=== PATIENT | male | born 1980 | race Caucasian/White ===

== ENCOUNTER 2017-01-13 16:53 | Inpatient (IN) | payer MEDICAID, OTHER ==
[~2017-01-13] VITALS: Ht 177.8 cm; Wt 91.5 kg
[2017-01-13 19:16] LABS: ADD SCAN DIFF NO
[2017-01-13 19:17] LABS: HEMATOCRIT 34.6 % (42.0-52.0); HEMOGLOBIN 12.1 g/dl (14.0-18.0); MEAN CORPUSCULAR HEMOGLOBIN 29.6 pg (29.0-33.0); MEAN CORPUSCULAR VOLUME 84.6 fl (82.0-101.0); MEAN PLATELET VOLUME 9.3 fl (7.4-10.4); PLATELET COUNT 510 10^3/UL (140-415); RED BLOOD COUNT 4.09 10^6/ul (4.70-6.10); RED CELL DISTRIBUTION WIDTH 14.6 % (11.5-14.5); WHITE BLOOD COUNT 9.9 10^3/ul (4.8-10.8)
[2017-01-13 19:20] LABS: HAAIG REFLEX REFLEX FILED
[2017-01-13 19:27] LABS: ADD UMIC YES; URINE BILIRUBIN (Dip) 3+ (NEGATIVE); URINE BLOOD (Dip) 1+ (NEGATIVE); URINE COLOR AMBER (YELLOW); URINE GLUCOSE (Dip) NEGATIVE (NEGATIVE); URINE KETONES (Dip) NEGATIVE (NEGATIVE); URINE LEUKOCYTE ESTERASE (Dip) NEGATIVE (NEGATIVE); URINE NITRITE (Dip) NEGATIVE (NEGATIVE); URINE TOTAL PROTEIN (Dip) 1+ (NEGATIVE); URINE UROBILINOGEN (Dip) 1.0 E.U./dL (0.1-1.0)
[2017-01-13 19:38] LABS: ALBUMIN 3.8 g/dl (3.3-4.9); ALBUMIN/GLOBULIN RATIO 0.65; BILIRUBIN,DIRECT 3.8 mg/dl (0.00-0.20); BILIRUBIN,INDIRECT 1.1 mg/dl (0-1.1); BILIRUBIN,TOTAL 4.9 mg/dl (0.2-1.3); CALCIUM 9.8 mg/dl (8.4-10.2); CREATININE 1.19 mg/dl (0.61-1.24); POTASSIUM 3.9 mmol/L (3.5-5.1); TOTAL PROTEIN 9.6 g/dl (6.1-8.1)
[2017-01-13 19:40] LABS: INR 0.91; PROTIME 12.3 Sec (12.2-14.2)
[2017-01-13 19:41] LABS: PARTIAL THROMBOPLASTIN TIME 27.1 Sec (25.0-35.0)
[2017-01-13 19:51] LABS: BACTERIA,URINE RARE; ICTOTEST POSITIVE (NEGATIVE); SQUAMOUS EPITHELIAL CELL,UR RARE; URINE RBCS 0-2 /HPF (0)
[2017-01-13 19:57] LABS: EOSINOPHILS # 1.2 10^3/ul (0.0-0.5); LYMPHOCYTES # 1.2 10^3/ul (0.8-2.9); MONOCYTE # 0.7 10^3/ul (0.3-0.9); NEUTROPHIL # 6.8 10^3/ul (1.6-7.5)
--- NOTE | 2017-01-13 20:13 | RADRPT ---
PROCEDURE: US Abdomen. CLINICAL INDICATION: abdominal pain , jaundice TECHNIQUE: Multiple real-time images were acquired of the patient's right upper quadrant abdomen a nd retroperitoneum utilizing a high resolution transducer. COMPARISON: None FINDINGS: The liver demonstrates normal echogenicity. The liver is enlarged in size and no focal solid lesion s are seen. The liver measures 20 cm in length. The portal vein is patent with normal direction of f low. There is mild intrahepatic biliary dilatation seen. No gallstones are identified within the gallbladder. There is moderate pericholecystic fluid. Ther e is mild gallbladder wall thickening measuring 3 mm. The common bile duct measures 5 mm in maximal dimension. There are multiple lymph nodes seen in the region of the pancreatic head and epigastric region measu ring up to 2.5 cm. The pancreas is not well seen. No free fluid is identified. The right kidney is normal in size, and demonstrate normal echogenicity and cortical thickness. The right kidney measures 12.4 cm in long dimension. There is no evidence of hydronephrosis. There are no kidney stones. There is a trace amount of right perinephric fluid. RPTAT: AA IMPRESSION: Evidence of lymphadenopathy in the region of the pancreatic head and epigastric region. Mild intrahepatic biliary ductal dilatation. Moderate pericholecystic fluid and mild gallbladder wall thickening. No evidence of gallstones. Trace amount of right perinephric fluid. Neoplasm, such as lymphoma, is suspected. Further evaluation with a CT of the abdomen and pelvis with contrast is recommended. A call report was made and the findings discussed with Valeria Monsalve (Poornima) at 01/13/2017 8:1 0:10 PM. .Manav Zazueta MD, MD Date Time Electronically viewed and signed by .Manav Zazueta MD, MD on 01/13/2017 20:12 .S/
[2017-01-13 20:26] LABS: HEPATITIS B CORE ANTIBODY NEGATIVE (NEGATIVE)
[2017-01-13] MEDS ORDERED: SOD CHLORIDE 0.9% 1,000 ML IV SCH (20:28)
[2017-01-13] MEDS ORDERED: ACETAMINOPHEN 325 MG TAB PO PRN (20:30)
[2017-01-13] MEDS ORDERED: ONDANSETRON 4 MG INJ IV PRN ×2 (20:30→22:00)
--- NOTE | 2017-01-13 20:33 | ERA ---
ER Documentation Chief Complaint Date/Time DATE: 01/13/17 TIME: 20:29 Chief Complaint FATIGUE, GENERALIZE WEAKNESS & NAUSEA X4 DAYS HPI This is a 36-year-old male complains of painless jaundice over the past 4-5 days. The patient's skin is turned gradually yellow with very dark yellow urine but no fever nausea vomiting or diarrhea. Does feel general malaise. The patient is seen his primary care doctor a month ago for some swollen glands under his mandible if not resolved. Saw his doctor again today because of the jaundice and he was sent here for evaluation. He has no abdominal pain no back pain no weight loss or lack of appetite. ROS All systems reviewed and are negative except as per history of present illness. Medications Home Meds No Active Prescriptions or Reported Meds Allergies Allergies: Coded Allergies: No Known Allergy (Unverified , 01/13/17) PMhx/Soc Medical and Surgical Hx: pt denies Medical Hx History of Surgery: Yes (shoulder) Hx Cardiac Disorders: No Hx Psychiatric Problems: No Hx Miscellaneous Medical Probl: No Hx Alcohol Use: No Hx Substance Use: No Hx Tobacco Use: No Smoking Status: Never smoker FmHx Family History: No coronary disease Physical Exam Vitals Vital Signs Date Time Temp Pulse Resp B/P Pulse Ox O2 Delivery O2 Flow Rate FiO2 01/13/17 19:40 99.5 84 18 131/75 97 Room Air 01/13/17 16:57 97.6 106 18 165/81 97 Physical Exam Const: Well-developed, well-nourished Head: Atraumatic, normocephalic Eyes: Normal Conjunctiva, PERRLA, EOMI, normal sclera, no nystagmus ENT: Normal External Ears, Nose and Mouth, moist mucus membranes, there is large submandibular adenopathy and anterior chain adenopathy. Neck: Full range of motion. No meningismus, no lymphadenopathy. Resp: Clear to auscultation bilaterally, no wheezing, rhonchi, rales Cardio: Regular rate and rhythm, no murmurs, S1 S2 present Abd: Soft, non tender x 4, right upper quadrant with mild tenderness with either enlarged liver or nodes , non distended. Normal bowel sounds, no guarding or rebound, no pulsitile abdominal masses or bruits Skin: No petechiae or rashes, no ecchymosis , no maculopapular rash, jaundice Back: No midline or flank tenderness Ext: No cyanosis, or edema, FROM x 4, normal inspection, neurovascularly intact x 4 Neur: Awake and alert, STR 5/5 x 4, sensation intact x 4, no focal findings, cerebellum intact Psych: Normal Mood and Affect Result Diagram: 01/13/17190401/13/171904 Results 24 hrs Laboratory Tests Test 01/13/17 19:05 01/13/17 19:09 White Blood Count 9.910^3/ul Red Blood Count 4.0910^6/ul Hemoglobin 12.1g/dl Hematocrit 34.6% Mean Corpuscular Volume 84.6fl Mean Corpuscular Hemoglobin 29.6pg Mean Corpuscular Hemoglobin Concent 35.0g/dl Red Cell Distribution Width 14.6% Platelet Count 42991^3/UL Mean Platelet Volume 9.3fl Neutrophils % 69.0% Lymphocytes % 12.0% Monocytes % 7.0% Eosinophils % 12.0% Neutrophils # 6.810^3/ul Lymphocytes # 1.210^3/ul Monocytes # 0.710^3/ul Eosinophils # 1.210^3/ul Prothrombin Time 12.3Sec Prothrombin Time Ratio 1.0 INR International Normalized Ratio 0.91 Activated Partial Thromboplast Time 27.1Sec Sodium Level 140mmol/L Potassium Level 3.9mmol/L Chloride Level 103mmol/L Carbon Dioxide Level 29mmol/L Anion Gap 12 Blood Urea Nitrogen 20mg/dl Creatinine 1.19mg/dl Glucose Level 110mg/dl Calcium Level 9.8mg/dl Total Bilirubin 4.9mg/dl Direct Bilirubin 3.80mg/dl Indirect Bilirubin 1.1mg/dl Aspartate Amino Transf (AST/SGOT) 65IU/L Alanine Aminotransferase (ALT/SGPT) 134IU/L Alkaline Phosphatase 774IU/L Total Protein 9.6g/dl Albumin 3.8g/dl Globulin 5.80g/dl Albumin/Globulin Ratio 0.65 Lipase 25U/L Hepatitis B Surface Antigen NEGATIVE Hepatitis B Core Total Antibody NEGATIVE Hepatitis C Antibody NEGATIVE Urine Color CHETAN Urine Clarity CLEAR Urine pH 6.0 Urine Specific [place] 1.025 Urine Ketones NEGATIVE Urine Nitrite NEGATIVE Urine Bilirubin 3+ Urine Ictotest POSITIVE Urine Urobilinogen 1.0 E.U./dL Urine Leukocyte Esterase NEGATIVE Urine Microscopic RBC 0-2/HPF Urine Microscopic WBC 0-2/HPF Urine Squamous Epithelial Cells RARE Urine Bacteria RARE Urine Hemoglobin 1+ Urine Glucose NEGATIVE% Urine Total Protein 1+ Procedures/MDM PROCEDURE: US Abdomen. CLINICAL INDICATION: abdominal pain , jaundice TECHNIQUE: Multiple real-time images were acquired of the patient's right upper quadrant abdomen and retroperitoneum utilizing a high resolution transducer. COMPARISON: None FINDINGS: The liver demonstrates normal echogenicity. The liver is enlarged in size and no focal solid lesions are seen. The liver measures 20 cm in length. The portal vein is patent with normal direction of flow. There is mild intrahepatic biliary dilatation seen. No gallstones are identified within the gallbladder. There is moderate pericholecystic fluid. There is mild gallbladder wall thickening measuring 3 mm. The common bile duct measures 5 mm in maximal dimension. There are multiple lymph nodes seen in the region of the pancreatic head and epigastric region measuring up to 2.5 cm. The pancreas is not well seen. No free fluid is identified. The right kidney is normal in size, and demonstrate normal echogenicity and cortical thickness. The right kidney measures 12.4 cm in long dimension. There is no evidence of hydronephrosis. There are no kidney stones. There is a trace amount of right perinephric fluid. RPTAT: AA IMPRESSION: Evidence of lymphadenopathy in the region of the pancreatic head and epigastric region. Mild intrahepatic biliary ductal dilatation. Moderate pericholecystic fluid and mild gallbladder wall thickening. No evidence of gallstones. Trace amount of right perinephric fluid. Neoplasm, such as lymphoma, is suspected. Further evaluation with a CT of the abdomen and pelvis with contrast is recommended. A call report was made and the findings discussed with Valeria Monsalve (Poornima) at 01/13/2017 8:10:10 PM. .Manav Zazueta MD, MD Date Time Electronically viewed and signed by .Manav Zazueta MD, MD on 01/13/2017 20: 12 .S/ CC: VALERIA MILLS DO We will admit patient for painless jaundice with suspected lymphoma will need CT abdomen with contrast for better evaluation and to look at the pancreatic head. 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
[2017-01-13 21:02] VITALS: TEMP 99.2
--- NOTE | 2017-01-13 21:05 | RADRPT ---
PROCEDURE: Chest x-ray CLINICAL INDICATION: Chest pain TECHNIQUE: Chest single view COMPARISON: None FINDINGS: The heart is normal in size. The pulmonary vessels are normal in caliber. The lungs are clear. Th e costophrenic angles are sharp. The visualized bony thorax is unremarkable. IMPRESSION: No acute cardiopulmonary disease. RPTAT: HH .Jose Cochran MD, MD Date Time Electronically viewed and signed by .Jose Cochran MD, on 01/13/2017 21:05 .W/
[2017-01-13 21:26] VITALS: Ht 177.8 cm; Wt 91.5 kg
[2017-01-13 21:50] VITALS: BP 126/75; RESP 20
[2017-01-13] MEDS ORDERED: morphine 10 MG INJ IM PRN (22:00)
[2017-01-14] VITALS (14 sets, daily range): BP systolic 103–126; BP diastolic 63–79; PULSE 88–98; RESP 16–20
[2017-01-14] MEDS ORDERED: ZOLPIDEM 5 MG TAB PO PRN (05:00)
[2017-01-14] MEDS: hydrOXYzine HCL 25 MG TAB NGT PRN (05:37)
--- NOTE | 2017-01-14 05:43 | HP ---
DATE OF ADMISSION: 01/13/2017 CHIEF COMPLAINT: "Jaundice." HISTORY OF PRESENT ILLNESS: The patient is a 36-year-old male with no significant past medical hist ory who presented to the emergency department with the above stated chief complaint. He stated that about 2 months ago he started noticing enlarged lymph nodes under his mandibles for which he went t o urgent care clinic, and he stated he was treated with antibiotic as well as anti-inflammatory. He stated that did not shrink the lymph nodes which are painless. Over the past 10 days or so, he sta rted having generalized itching and also started noticing his urine turning dark. Yesterday he went to see his primary care doctor who told him that his eyes were turning yellow and instructed him to go to the ER for evaluation. He stated that he has lost between 20 to 25 pounds intentionally over the past 2 months. He denied any fever, chills, nausea, vomiting, abdominal pain, chest pain, or s hortness of breath. Over the past 10 days or so, however, he has been having difficulty falling asl eep for which he started taking sleeping pill as well as smoking marijuana to help him sleep. When he presented to the ER, his blood pressure was 165/81, heart rate 106, respiratory rate 18, tem perature 97.6, oxygen saturation 97% on room air. Laboratory value shows a WBC 9.9, hemoglobin 12.1 , platelet count 510. Total bilirubin almost 5, direct bilirubin almost 4, AST 65, ALT 134, alkalin e phosphatase almost 800. Lipase is 25, and the rest of his CMP is within normal limits. A right u pper quadrant ultrasound was done which showed evidence of lymphadenopathy in the region of the panc reatic head and epigastric region with mild intrahepatic biliary ductal dilatation as well as modera te pericholecystic fluid and mild gallbladder wall thickening with no evidence of gallstones. Accor ding to radiology, neoplasm such as lymphoma is suspected. Chest x-ray shows clear lungs REVIEW OF SYSTEMS: A 12-point review was performed and negative except as mentioned in HPI. PAST MEDICAL HISTORY: Denies. PAST SURGICAL HISTORY: Right shoulder surgery from trauma. SOCIAL HISTORY: Denied a history of tobacco, drinks alcohol occasionally. He recently started smok ing marijuana to help him with sleep ALLERGIES: NO KNOWN DRUG ALLERGIES. HOME MEDICATIONS: He has been taking an unknown sleeping pill over the past 10 days. Otherwise, do es not take any medications chronically. PHYSICAL EXAMINATION: VITAL SIGNS: Blood pressure 126/75, heart rate 99, respiratory rate 20, temperature 98.2, oxygen sa turation 98% on room air. GENERAL: The patient is lying in bed. Initially he was sleepy, but he was arousable and answering questions appropriately. He actually looks comfortable. HEENT: No obvious head deformity. There is mild sclerotic icterus. Pupils are reactive to light. Extraocular muscles intact. CARDIOVASCULAR: Slightly tachycardic with regular rhythm. NECK: He has easily palpable lymph nodes just under his mandibles on both sides which are nontender . LUNGS: Clear to auscultation. No wheezes or rhonchi. ABDOMEN: Soft, nontender. No grimaces noted on palpation. There are positive bowel sounds. No gu arding, no rigidity. EXTREMITIES: No edema. SKIN: He has tattoos. Otherwise, no skin rashes. LABORATORY DATA: Pertinent positive results as mentioned in the HPI. IMAGING: Right upper quadrant ultrasound and chest x-ray results as mentioned in the HPI. IMPRESSION: 1. Painless jaundice, likely secondary to malignancy such as lipoma. 2. Abnormal liver enzymes, secondary to above. 3. Normocytic anemia. PLAN: We will obtain additional abdominal imaging to further evaluate the abnormal right upper quad rant ultrasound results. We will place an oncology and GI consult. He will be provided anti-itchin g medication. We will obtain a biopsy of one of his mandibular lymph nodes. We will check lactate dehydrogenase, uric acid, and also will send a ferritin and iron panel. Further workup and management per clinical course. Dictated By: BECCA DAVENPORT/ERIC Conf#: [id number] DID#: [id number]
[2017-01-14 06:09] LABS: ADD SCAN DIFF NO
[2017-01-14 06:26] LABS: BASOPHIL # 0.1 10^3/ul (0.0-0.1); BASOPHILS % 0.8 % (0.0-2.0); EOSINOPHILS # 1.8 10^3/ul (0.0-0.5); EOSINOPHILS % 16.1 % (0.0-7.0); HEMATOCRIT 31.6 % (42.0-52.0); HEMOGLOBIN 10.9 g/dl (14.0-18.0); LYMPHOCYTES # 1.6 10^3/ul (0.8-2.9); LYMPHOCYTES % 14.5 % (15.0-51.0); MEAN CORPUSCULAR HEMOGLOBIN 29.1 pg (29.0-33.0); MEAN CORPUSCULAR HGB CONC 34.5 g/dl (32.0-37.0); MEAN CORPUSCULAR VOLUME 84.3 fl (82.0-101.0); MEAN PLATELET VOLUME 9.1 fl (7.4-10.4); MONOCYTE # 0.6 10^3/ul (0.3-0.9); MONOCYTES % 5.9 % (0.0-11.0); NEUTROPHIL # 6.8 10^3/ul (1.6-7.5); NEUTROPHILS % 61.9 % (39.0-77.0); PLATELET COUNT 436 10^3/UL (140-415); RED BLOOD COUNT 3.75 10^6/ul (4.70-6.10); RED CELL DISTRIBUTION WIDTH 14.4 % (11.5-14.5)
[2017-01-14 06:44] LABS: ALBUMIN 3.4 g/dl (3.3-4.9); POTASSIUM 4.1 mmol/L (3.5-5.1)
[2017-01-14 06:46] LABS: BILIRUBIN,DIRECT 3.5 mg/dl (0.00-0.20); BILIRUBIN,INDIRECT 1.2 mg/dl (0-1.1); BILIRUBIN,TOTAL 4.7 mg/dl (0.2-1.3); CREATININE 1.14 mg/dl (0.61-1.24)
[2017-01-14 06:47] LABS: ALBUMIN/GLOBULIN RATIO 0.66; PHOSPHORUS 5.1 mg/dl (2.5-4.9); TOTAL PROTEIN 8.5 g/dl (6.1-8.1)
[2017-01-14 06:48] LABS: CALCIUM 9.2 mg/dl (8.4-10.2); MAGNESIUM 2.1 mg/dl (1.7-2.5)
[2017-01-14] MEDS ORDERED: CEFAZOLIN 1 GM INJ ONE (07:00)
[2017-01-14] MEDS ORDERED: HEPARIN 5,000 UNIT/0.5 ML VIAL SC SCH (09:00)
[2017-01-14] MEDS: DEXTROSE 5%-0.45% NACL 1,000 ML IV SCH ×2 (09:35→19:00)
[2017-01-14] MEDS ORDERED: DIPHENHYDRAMINE 50 MG INJ IV ONE (10:00)
--- NOTE | 2017-01-14 10:12 | PN ---
Date/Time of Note Date/Time of Note DATE: 01/14/17 TIME: 10:08 Assessment/Plan VTE Prophylaxis VTE Prophylaxis Intervention: ambulation Lines/Catheters [facility]ine [facility] Urinary Cath still in place: No Assessment/Plan Chief Complaint/Hosp Course Assessment and plan 1. Painless jaundice with associated pruritus. Patient did have abdominal ultrasound with evidence of lymphadenopathy in the region of the pancreatic head and epigastric region. There is also seen mild intrahepatic biliary duct dilation. There was seen moderate pericholecystic fluid and mild gallbladder wall thickening with no evidence of gallstones. Imaging suspect for neoplasm such as lymphoma. MRI of the abdomen with contrast is pending. Fax Machine Repairer was consulted. Oncology was consulted as well. Await input. Continue with antihistamine as needed for pruritus 2. Transaminitis likely secondary to #1. Monitor LFT. Fax Machine Repairer to follow. 3. Leukocytosis. Likely reactive. Monitor for S&S of fever 4. Normocytic normochromic anemia. Monitor level. 5. Hyperbilirubinemia secondary to #1. Still with reports of dark colored urine. Disposition and plan: Follow-up on further imaging of abdomen. Oncologist and product development worker to follow. Follow-up with input Discussed plan of care with Dr. Thompson Problems: Subjective 24 Hr Interval Summary Free Text/Dictation Reports having generalized pruritus. Denies any pain at this time per Exam/Review of Systems Vital Signs Vitals Vital Signs Date Time Temp Pulse Resp B/P Pulse Ox O2 Delivery O2 Flow Rate FiO2 01/14/17 08:08 97.8 86 18 126/72 99 01/13/17 21:02 Room Air Intake and Output 01/13/17 01/13/17 01/14/17 15:00 23:00 07:00 Intake Total 800 ml Output Total 700 ml Balance 100 ml Exam Constitutional: alert, oriented Psych: nl mood/affect Head: normocephalic Eyes: other (Minimally icteric) Neck: supple, No jvd Respiratory: clear to auscultation, normal air movement Cardiovascular: regular rate and rhythm Gastrointestinal: non-tender, soft Musculoskeletal: nl extremities to inspection Extremities: normal pulses Neurological: COKEMAN II-XII intact, nl mental status, nl speech Results Result Diagram: 01/14/17 0550 01/14/17 0550 Results 24 hrs Laboratory Tests Test 01/13/17 19:05 01/13/17 19:09 01/14/17 05:50 White Blood Count 9.9 10.9 H Red Blood Count 4.09 L 3.75 L Hemoglobin 12.1 L 10.9 L Hematocrit 34.6 L 31.6 L Mean Corpuscular Volume 84.6 84.3 Mean Corpuscular Hemoglobin 29.6 29.1 Mean Corpuscular Hemoglobin Concent 35.0 34.5 Red Cell Distribution Width 14.6 H 14.4 Platelet Count 510 H 436 H Mean Platelet Volume 9.3 9.1 Neutrophils % 69.0 61.9 Lymphocytes % 12.0 L 14.5 L Monocytes % 7.0 5.9 Eosinophils % 12.0 H 16.1 H Neutrophils # 6.8 6.8 Lymphocytes # 1.2 1.6 Monocytes # 0.7 0.6 Eosinophils # 1.2 H 1.8 H Prothrombin Time 12.3 Prothrombin Time Ratio 1.0 INR International Normalized Ratio 0.91 Activated Partial Thromboplast Time 27.1 Sodium Level 140 141 Potassium Level 3.9 4.1 Chloride Level 103 103 Carbon Dioxide Level 29 26 Anion Gap 12 16 Blood Urea Nitrogen 20 21 H Creatinine 1.19 1.14 Glucose Level 110 110 Calcium Level 9.8 9.2 Total Bilirubin 4.9 H 4.7 H Direct Bilirubin 3.80 H 3.50 H Indirect Bilirubin 1.1 1.2 H Aspartate Amino Transf (AST/SGOT) 65 H 55 H Alanine Aminotransferase (ALT/SGPT) 134 H 110 H Alkaline Phosphatase 774 H 604 H Total Protein 9.6 H 8.5 H Albumin 3.8 3.4 Globulin 5.80 H 5.10 H Albumin/Globulin Ratio 0.65 0.66 Lipase 25 Hepatitis B Surface Antigen NEGATIVE Hepatitis B Core Total Antibody NEGATIVE Hepatitis C Antibody NEGATIVE Urine Color CHETAN Urine Clarity CLEAR Urine pH 6.0 Urine Specific [place] 1.025 Urine Ketones NEGATIVE Urine Nitrite NEGATIVE Urine Bilirubin 3+ H Urine Ictotest POSITIVE Urine Urobilinogen 1.0 E.U./dL Urine Leukocyte Esterase NEGATIVE Urine Microscopic RBC 0-2 Urine Microscopic WBC 0-2 Urine Squamous Epithelial Cells RARE Urine Bacteria RARE Urine Hemoglobin 1+ H Urine Glucose NEGATIVE Urine Total Protein 1+ H Basophils % 0.8 Nucleated Red Blood Cells % 0.0 Basophils # 0.1 Nucleated Red Blood Cells # 0.0 Phosphorus Level 5.1 H Magnesium Level 2.1 Medications Medications Current Medications Morphine Sulfate (morphine) 3 mg Q4H PRN IM PAIN; Start 01/13/17 at 22:00 Ondansetron HCl 4 mg 4 mg Q6H PRN IV NAUSEA AND/OR VOMITING; Start 01/13/17 at 22:00 Dextrose/Sodium Chloride (D5-1/2ns) 1,000 ml @ 100 mls/hr Q10H IV Last administered on 01/14/17 09:35; Admin Dose 100 MLS/HR; Start 01/14/17 at 09:00 Hydroxyzine HCl (Atarax) 25 mg Q6H PRN NGT ITCHING Last administered on 05:37; Admin Dose 25 MG; Start 01/14/17 at 05:00 Zolpidem Tartrate (Ambien) 10 mg HS PRN PO INSOMNIA; Start 01/14/17 at 05:00 Indomethacin (Indocin Supp) 100 mg ONCE ONCE [place] ; Start 01/14/17 at 10:30; Stop 01/14/17 at 10:31 Diphenhydramine HCl (Benadryl) 50 mg ONCE ONCE IV ; Start 01/14/17 at 10:00; Stop 01/14/17 at 10:01; Status PATRICIA BOYD Jan 14, 2017 10:12
[2017-01-14] MEDS ORDERED: INDOMETHACIN 50 MG SUPP PR ONE (10:30)
--- NOTE | 2017-01-14 16:09 | RADRPT ---
PROCEDURE: MR Abdomen with and without contrast CLINICAL INDICATION: Jaundice. TECHNIQUE: Protocol: Routine MRI of the abdomen performed with and without contrast Contrast: 20 cc of intravenous Magnevist. COMPARISON: None. FINDINGS: Liver is enlarged measuring 21 cm. No focal liver lesion. Gallbladder demonstrates mild mural thickening and hyperenhancement. There is diffuse intrahepatic bile duct dilatation. There is also mural thickening and hyperenhance ment of the extrahepatic biliary system. The pancreatic body and tail is thickened with increased restricted diffusion. There are multiple l ymph nodes identified in the peripancreatic and portocaval region. There is also an enlarged gastro hepatic lymph node measuring up to 3.0 cm. There are also numerous subcentimeter retroperitoneal lymph nodes. Spleen is enlarged measuring 14 cm in AP dimension. Kidneys demonstrate diffuse low T2 signal nodules occupying the bilateral renal cortices Visualized bowel is normal in caliber without mural thickening. No free fluid or fluid collection. Marrow signal is unremarkable. IMPRESSION: Subtle infiltration of the pancreatic body, concerning for a lymphomatous involvement of the pancrea s. There is associated peripancreatic, retroperitoneal, and gastrohepatic lymphadenopathy. Numerous hyporvascular lesions occupying the bilateral kidneys, radiographically consistent with rona al lymphoma. Diffuse mild intrahepatic bile duct dilatation. There is also marrow thickening and hyperenhancemen t of the extrahepatic biliary system, which is a nonspecific finding and is seen in cases of cholang itis. However, the possibility of lymphomatous involvement of the biliary system is raised, albeit rare, given the findings in the pancreas and kidneys. Hepatosplenomegaly. RPTAT: EE .Rodrick Lerma MD, MD Date Time Electronically viewed and signed by .Rodrick Lerma MD, MD on 01/14/2017 16:13 .C/
[2017-01-14] MEDS ORDERED: IOHEXOL 300MG/ML 30 ML BTL ONE (16:59)
[2017-01-14] MEDS ORDERED: SUCCINYLCHOLINE CHLORIDE 100 MG/5 ML SYG IV ONE (17:24)
[2017-01-14] MEDS ORDERED: PROPOFOL 20 ML ONE (17:24)
[2017-01-14] MEDS ORDERED: MIDAZOLAM 1 MG/ML 2 ML INJ ONE (17:25)
[2017-01-14] MEDS ORDERED: FENTAnyl 50 MCG/ML VIAL ONE ×2 (17:25→17:49)
[2017-01-14] MEDS ORDERED: PHENYLephrine (100 MCG/ML) 5ML SYG ONE (17:48)
--- NOTE | 2017-01-14 18:28 | CONS ---
Date/Time of Note Date/Time of Note DATE: 01/14/17 TIME: 18:04 Assessment/Plan Assessment/Plan Additional Assessment/Plan Assessment * Jaundice * Likely extrahepatic vs hepatic etiology MRCP 01/14/2017 Subtle infiltration of the pancreatic body, concerning for a lymphomatous involvement of the pancreas. There is associated peripancreatic, retroperitoneal, and gastrohepatic lymphadenopathy.Numerous hyporvascular lesions occupying the bilateral kidneys, radiographically consistent with renal lymphoma Diffuse mild intrahepatic bile duct dilatation. There is also marrow thickening and hyperenhancement of the extrahepatic biliary system, which is a nonspecific finding and is seen in cases of cholangitis. However, the possibility of lymphomatous involvement of the biliary system is raised, albeit rare, given the findings in the pancreas and kidneys. Plan * ERCP risks and benefit explained to patient patient agreed with plan procedure * continue present management * Monitor liver profile . Consultation Date/Type/Reason Admit Date/Time Jan 13, 2017 at 20:28 Date of Consultation: Jan 14, 2017 Reason for Consultation jaundice Referring Provider: BECCA QUEVEDO MD Hx of Present Illness 36 year old male who presented with chief complaint of jaundice.No significant past medical history.Present condition apparently started 2 months prior to consultation as submandibular lymph nodes described as painless ,no fever nor chills .He consulted a physician and was given antibiotics which provided no relief.No consultation until 2 weeks prior to consultation jaundice was noted with associated dark colored urine but no change in color of stool.No fever nor abdominal pain until 1 week prior to consult ,progressive jaundice with itchiness were noted hence consulted private Md who advised to go to emergency room. Emergency room course revealed the following. Ultrasound of gallbladder 01/13/2017 Evidence of lymphadenopathy in the region of the pancreatic head and epigastric region.Mild intrahepatic biliary ductal dilatation. Moderate pericholecystic fluid and mild gallbladder wall thickening. No evidence of gallstones.Trace amount of right perinephric fluid.Neoplasm, such as lymphoma, is suspected. Laboratory revealed normal wbc but elevated liver enzymes.Total bilirubin 4.9, AST 65,ALT 134,Alkaline phosphatase 774. Subsequent examination on the floor revealed painless jaundice associated itchiness.Denies any fever . MRCP revealed Subtle infiltration of the pancreatic body, concerning for a lymphomatous involvement of the pancreas. There is associated peripancreatic, retroperitoneal, and gastrohepatic lymphadenopathy.Numerous hyporvascular lesions occupying the bilateral kidneys, radiographically consistent with renal lymphoma.Diffuse mild intrahepatic bile duct dilatation. There is also marrow thickening and hyperenhancement of the extrahepatic biliary system, which is a nonspecific finding and is seen in cases of cholangitis. However, the possibility of lymphomatous involvement of the biliary system is raised, albeit rare, given the findings in the pancreas and kidneys.Hepatosplenomegaly. Constitutional: improved, no complaints Eyes: no complaints ENT: no complaints Respiratory: no complaints Cardiovascular: no complaints Gastrointestinal: no complaints Genitourinary: no complaints Musculoskeletal: no complaints Skin: no complaints, other (jaundice) Neurologic: no complaints Endocrine: no complaints Lymphatic: adenopathy, no complaints Psychological: nl mood/affect Immunologic: no complaints Past Medical History Medical History: no pertinent history Past Surgical History Past Surgical Hx: no surgical history Family History Significant Family History: no pertinent family hx Social History Alcohol Use: occasionally Smoking Status: Never smoker Drug Use: none Exam/Review of Systems Vital Signs Vitals Vital Signs Date Time Temp Pulse Resp B/P Pulse Ox O2 Delivery O2 Flow Rate FiO2 01/14/17 08:08 97.8 86 18 126/72 99 01/13/17 21:02 Room Air Intake and Output 01/13/17 01/13/17 01/14/17 15:00 23:00 07:00 Intake Total 800 ml Output Total 700 ml Balance 100 ml Exam Constitutional: alert, oriented, well developed Head: atraumatic, normocephalic Eyes: EOMI, PERRL, icteric, nl conjunctiva, nl lids ENMT: nl external ears & nose, nl lips & teeth, nl nasal mucosa & septum Neck: non-tender, other (lymph nodes), supple Respiratory: clear to auscultation, normal air movement Cardiovascular: nl pulses, regular rate and rhythm Gastrointestinal: bowel sounds, nl liver, spleen, non-tender, soft Genitourinary - Male: nl penis, nl scrotum Musculoskeletal: nl extremities to inspection, nl gait and stance Extremities: normal pulses Neurological: [employer] II-XII intact, nl mental status, nl speech, nl strength Skin: nl turgor, other (jaundice), No rash or lesions Lymph: enlarged (submandibular,inguinal lymph nodes) Results Result Diagram: 01/14/17 0550 01/14/17 0550 Results 24 hrs Laboratory Tests Test 01/13/17 19:05 01/13/17 19:09 01/14/17 05:50 White Blood Count 9.9 10.9 H Red Blood Count 4.09 L 3.75 L Hemoglobin 12.1 L 10.9 L Hematocrit 34.6 L 31.6 L Mean Corpuscular Volume 84.6 84.3 Mean Corpuscular Hemoglobin 29.6 29.1 Mean Corpuscular Hemoglobin Concent 35.0 34.5 Red Cell Distribution Width 14.6 H 14.4 Platelet Count 510 H 436 H Mean Platelet Volume 9.3 9.1 Neutrophils % 69.0 61.9 Lymphocytes % 12.0 L 14.5 L Monocytes % 7.0 5.9 Eosinophils % 12.0 H 16.1 H Neutrophils # 6.8 6.8 Lymphocytes # 1.2 1.6 Monocytes # 0.7 0.6 Eosinophils # 1.2 H 1.8 H Prothrombin Time 12.3 Prothrombin Time Ratio 1.0 INR International Normalized Ratio 0.91 Activated Partial Thromboplast Time 27.1 Sodium Level 140 141 Potassium Level 3.9 4.1 Chloride Level 103 103 Carbon Dioxide Level 29 26 Anion Gap 12 16 Blood Urea Nitrogen 20 21 H Creatinine 1.19 1.14 Glucose Level 110 110 Calcium Level 9.8 9.2 Total Bilirubin 4.9 H 4.7 H Direct Bilirubin 3.80 H 3.50 H Indirect Bilirubin 1.1 1.2 H Aspartate Amino Transf (AST/SGOT) 65 H 55 H Alanine Aminotransferase (ALT/SGPT) 134 H 110 H Alkaline Phosphatase 774 H 604 H Total Protein 9.6 H 8.5 H Albumin 3.8 3.4 Globulin 5.80 H 5.10 H Albumin/Globulin Ratio 0.65 0.66 Lipase 25 Hepatitis B Surface Antigen NEGATIVE Hepatitis B Core Total Antibody NEGATIVE Hepatitis C Antibody NEGATIVE Urine Color CHETAN Urine Clarity CLEAR Urine pH 6.0 Urine Specific [place] 1.025 Urine Ketones NEGATIVE Urine Nitrite NEGATIVE Urine Bilirubin 3+ H Urine Ictotest POSITIVE Urine Urobilinogen 1.0 E.U./dL Urine Leukocyte Esterase NEGATIVE Urine Microscopic RBC 0-2 Urine Microscopic WBC 0-2 Urine Squamous Epithelial Cells RARE Urine Bacteria RARE Urine Hemoglobin 1+ H Urine Glucose NEGATIVE Urine Total Protein 1+ H Basophils % 0.8 Nucleated Red Blood Cells % 0.0 Basophils # 0.1 Nucleated Red Blood Cells # 0.0 Phosphorus Level 5.1 H Magnesium Level 2.1 Medications Medications Current Medications Morphine Sulfate (morphine) 3 mg Q4H PRN IM PAIN; Start 01/13/17 at 22:00 Ondansetron HCl 4 mg 4 mg Q6H PRN IV NAUSEA AND/OR VOMITING; Start 01/13/17 at 22:00 Dextrose/Sodium Chloride (D5-1/2ns) 1,000 ml @ 100 mls/hr Q10H IV Last administered on 01/14/17 09:35; Admin Dose 100 MLS/HR; Start 01/14/17 at 09:00 Hydroxyzine HCl (Atarax) 25 mg Q6H PRN NGT ITCHING Last administered on 05:37; Admin Dose 25 MG; Start 01/14/17 at 05:00 Zolpidem Tartrate (Ambien) 10 mg HS PRN PO INSOMNIA; Start 01/14/17 at 05:00 NARESH COON MD Jan 14, 2017 18:16
[2017-01-14] MEDS ORDERED: ONDANSETRON 4 MG INJ IV PRN (19:00)
[2017-01-14] MEDS ORDERED: METOCLOPRAMIDE 10 MG INJ IV PRN (19:00)
[2017-01-14] MEDS ORDERED: EPHEDrine SULFATE 50 MG/5 ML SYG IV PRN (19:00)
--- NOTE | 2017-01-14 23:08 | CONS ---
DATE OF ADMISSION: 01/13/2017 DATE OF CONSULTATION: 01/14/2017 TYPE OF CONSULTATION: Hematology/oncology. REQUESTING PHYSICIAN: Dr. Timbo Quevedo REASON FOR CONSULTATION: Lymphadenopathy and icterus. Dear Dr. Quevedo: Thank you very much for asking me to see this very interesting and pleasant patient in oncologic research psychiatric centertation. HISTORY OF PRESENT ILLNESS: As you know, Mr. Mahoney is a 36-year-old male who was in good health un til approximately 2 months ago. At that time, the patient was noted to have some lymphadenopathy in the submandibular area. He states that he was seen at urgent care center and given antibiotics and also an "anti-inflammatory." This was of no benefit. The patient states that also during this past 2 months he has had occasional night sweats, although these are not described as being drenching. He does also state that he has noted some decrease in a ppetite. He states food does not taste good and, as a result, feels he has lost [address] month. The patient has not had abdominal pain. He has had some episodes of nausea and vomiting. There has been no change in bowel habits. The patient has not described any left upper quadrant fullness or early satiety. The patient has noticed in the past 2 weeks to have generalized pruritus. This is not necessarily i nduced by hot bath or shower. He also has noted over the past week that urine has been dark. He johnson s not noted any light colored stools. The patient was seen today by his mother's primary care physician who did note that the patient was jaundiced and told him to go the emergency room for evaluation. The patient was seen in the emergency room. White count was 99,900 with 69% neutrophils, 12% lympho cytes, and also 12% eosinophils, red blood cell count was 4.09 million, hemoglobin 12.1, hematocrit 34.6, MCV 84.6, MCH 29.6, MCHC 35, RDW 14.6, and platelet count of 510,000. On admission, the patie nt's sodium was 140, potassium 3.9, creatinine 1.19, BUN 20, calcium 9.8, albumin 3.8 with globulin of 5.80, total bilirubin 4.9 with a direct of 3.8, AST 65, ALT 134, alkaline phosphatase 774, and li pase was 25. A protime was 12.3 seconds, INR 0.91, and PTT 27.1 seconds. Urinalysis does not show any red blood cells or white blood cells. There is 1+ protein and 3+ bilirubin. Hepatitis surface antigen core antibody and hepatitis C antibodies are all negative. An ultrasound of the gallbladder was done, which showed lymphadenopathy in the region of the pancrea tic head and epigastric region. There was mild intrahepatic biliary ductal dilatation. A chest x-r ay did not reveal any pulmonary parenchymal abnormalities and there was no mention of any lymphadeno kendell. MRI of the abdomen was done. This showed a possible infiltration of the pancreatic body wit h associated peripancreatic, retroperitoneal, and gastrohepatic lymphadenopathy. There were numerou s "hypovascular lesions" within the kidneys. This was felt to be consistent with lymphoma. There w as also mild intrahepatic ductal dilatation and mural thickening and enhancement of the extrahepatic biliary system. The spleen is slightly enlarged at 14 cm. The liver was enlarged at 21 cm. There were no focal hepatic lesions seen. There were numerous subcentimeter retroperitoneal lymph nodes seen. The patient has undergone an ERCP today. Unfortunately, there are no reports available to determine if there was a biliary stent placed. PAST MEDICAL HISTORY: Unremarkable. He has had no medical problems in the past. No hypertension, heart disease, diabetes, renal or hepatic disease. The patient has had fall in an elevator shaft, w hich resulted in right shoulder injury, which required surgical repair. The patient also had back i njury. SOCIAL HISTORY: The patient is unmarried. He does not smoke, drinks alcohol minimally. The patien t has not knowingly been exposed to industrial toxins or ionizing radiation. He has worked as an el [employer], but is presently disabled because of back injury. HOME MEDICATIONS: The patient's only medications at home have been some type of sleeping pill. ALLERGIES: HE HAS NO KNOWN ALLERGIES. FAMILY HISTORY: The patient's family history is unremarkable. There is no history of any malignanc y or hematologic abnormalities. PHYSICAL EXAMINATION: GENERAL: Reveals a well-developed, well-nourished male in no acute distress. VITAL SIGNS: Temperature 98.3, pulse 84 per minute and regular, respirations 20, blood pressure 124 /79, pulse oximetry 95% on room air. SKIN: No ecchymosis, no petechiae, no rashes. There are multiple tattoos present. HEENT: Normocephalic. No evidence of trauma. Pupils equal, round, react to light and accommodatio n. There is 2+ scleral icterus. Oral mucosa is moist without lesions. Tongue is well papillated. No gingival hyperplasia. No hypertrophy of Waldeyer ring. No mucosal telangiectasias. There are bilateral enlarged submandibular nodes or salivary glands. They are firm to the touch and nontender . NECK: Supple. No jugular venous distention or thyroid enlargement. No carotid bruits. CHEST: Clear to auscultation and percussion. No rhonchi, wheezes, rales, or rubs. There is no hasmukh n on percussion of the spine, sternum, clavicles, or ribs. HEART: Regular sinus rhythm. No S3, S4. No murmurs. No rubs. BREASTS: No gynecomastia. ABDOMEN: Flat and soft. There is no organomegaly. No masses or tenderness, although there is some fullness in the left upper quadrant. There is no hernias, no ascites. EXTREMITIES: Good range of motion. No clubbing, edema, or cyanosis. No palpable cords or Homans s ign. NEUROLOGIC: Normal. DISCUSSION: This patient does have jaundice, which appears to be due to biliary obstruction caused by local peripancreatic, biliary, and enlarged lymph nodes. There is evidence of possible infiltrat ion of the pancreas by a process as well as similar findings in the kidneys. Given the patient's age, such a process suggests the possibility of a lymphoproliferative disorder. The finding of increased eosinophils suggests the possibility of a Hodgkin lymphoma. Although less likely infections by some type of fungal organism cannot be ruled out. As noted, the patient may have had ERCP with possible biopsy today. Unfortunately, the amount of ti ssue obtainable through such a biopsy is not reliable for diagnosis of a proliferative disorder. At this time, would suggest that the patient have a CT scan of the chest. This will be done without contrast given the marginal creatinine. Perhaps this will demonstrate lymphadenopathy and/or media stinal mass, which would be consistent with Hodgkin lymphoma. Other studies to suggest at this time would include an LDH and uric acid. We will also obtain a ser um protein electrophoresis, immunofixation, and quantitative immunoglobulins. Also, a beta 2 microg lobulin, and a sedimentation rate. Once again, thank you very much for the opportunity of participating in the medical care of this yakov y interesting and pleasant patient. I will be happy to follow this patient with you and assist in h is hematologic and oncologic evaluation and followup as necessary. Dictated By: ROSEMARY SANTIZO MD SR/NTS Conf#: [id number] DID#: [id number] CC: TIMBO QUEVEDO MD; PATRICIA ARIAS NP;*EndCC*
[2017-01-15] MEDS: DEXTROSE 5%-0.45% NACL 1,000 ML IV SCH ×2 (04:09→15:00)
[2017-01-15 07:14] LABS: WHITE BLOOD COUNT 10.9 10^3/ul (4.8-10.8)
[2017-01-15 07:34] LABS: URIC ACID 6.1 mg/dl (3.1-7.9)
[2017-01-15 07:58] LABS: CARCINOEMBRYONIC ANTIGEN 0.7 ng/ml (0.0-5.0)
[2017-01-15 08:02] LABS: CANCER ANTIGEN 19-9 27.8 U/ml (0.0-37.0)
[2017-01-15 08:06] VITALS: BP 117/64; RESP 18
--- NOTE | 2017-01-15 09:01 | RADRPT ---
PROCEDURE: ERCP. I CLINICAL INDICATION: Choledocholithiasis. TECHNIQUE: A total of 5 images are performed demonstrating an endoscope in place. . COMPARISON: Abdominal sonogram 01/13/2017. FINDINGS: The common bile duct and cystic duct are of normal caliber. No definite filling defect is identifie d. Biliary stent was placed across the distal common bile duct. A small amount contrast is noted di stal to the stent in the duodenum. Fluoro time: 123.5 seconds mGy: 31.32 IMPRESSION: 1. Status post placement of a biliary stent across the distal common bile duct to the area of the d uodenum. RPTAT:AAJJ Physician Lenny Date Time Electronically viewed and signed by Physician Lenny on 01/15/2017 09:01 SUDHEER/
--- NOTE | 2017-01-15 09:12 | PN ---
Date/Time of Note Date/Time of Note DATE: 01/15/17 TIME: 09:03 Assessment/Plan VTE Prophylaxis VTE Prophylaxis Intervention: ambulation Lines/Catheters IV [facility] Peripheral IV Urinary Cath still in place: No Assessment/Plan Assessment/Plan Awaiting the results of the procedure yesterday. CT of chest to be done. SPEP is pending. He is comfortable presently as the evaluation continues. If material from yesterday is not diagnostic, then biopsy of another site may be needed. Note that LDH is normal, but SPEP is pending. Subjective 24 Hr Interval Summary Free Text/Dictation Pt is alert and comfortable now. Exam/Review of Systems Vital Signs Vitals Vital Signs Date Time Temp Pulse Resp B/P Pulse Ox O2 Delivery O2 Flow Rate FiO2 01/15/17 08:06 98.3 64 18 117/64 98 01/14/17 19:30 Room Air 01/14/17 18:36 8.0 Intake and Output 01/14/17 01/14/17 01/15/17 15:00 23:00 07:00 Intake Total 466 ml 200 ml 694 ml Output Total 1000 ml Balance 466 ml 200 ml -306 ml Exam Constitutional: alert, oriented Head: normocephalic Neck: supple Respiratory: clear to auscultation Cardiovascular: regular rate and rhythm Gastrointestinal: non-tender, soft Results Result Diagram: 01/14/17 0550 01/14/17 0550 Results 24 hrs Laboratory Tests Test 01/15/17 06:35 Uric Acid 6.1 Lactate Dehydrogenase 484 Carcinoembryonic Antigen 0.7 CA 19-9 Antigen 27.8 Immunoglobulin A 160 Immunoglobulin G 2166 H Immunoglobulin M 28 L Medications Medications Current Medications Morphine Sulfate (morphine) 3 mg Q4H PRN IM PAIN; Start 01/13/17 at 22:00 Ondansetron HCl 4 mg 4 mg Q6H PRN IV NAUSEA AND/OR VOMITING; Start 01/13/17 at 22:00 Dextrose/Sodium Chloride (D5-1/2ns) 1,000 ml @ 100 mls/hr Q10H IV Last administered on 01/15/17 04:09; Admin Dose 100 MLS/HR; Start 01/14/17 at 09:00 Hydroxyzine HCl (Atarax) 25 mg Q6H PRN NGT ITCHING Last administered on 05:37; Admin Dose 25 MG; Start 01/14/17 at 05:00 Zolpidem Tartrate (Ambien) 10 mg HS PRN PO INSOMNIA; Start 01/14/17 at 05:00 RIMA ALCOCER MD Jan 15, 2017 09:12
--- NOTE | 2017-01-15 09:42 | CONS ---
DATE OF ADMISSION: 01/13/2017 DATE OF CONSULTATION: 01/15/2017 HEMATOLOGY PROGRESS NOTE PAST MEDICAL HISTORY: The patient's peripheral smear has been reviewed. There is increased Rouleau x of red blood cells. There is a mild leukocytosis. Granulocytes appear normal. There are no arleen ture granulocytes, no hypersegmented polys, and no nucleated red blood cells. There are definite at ypical lymphocytes with convoluted nuclei, and also nucleoli. The appearance of these lymphocytes are most consistent with a non-Hodgkin's lymphoma rather than Ho dgkins disease. Will request a flow cytometry of the peripheral blood. Dictated By: ROSEMARY SANTIZO MD SR/NTS Conf#: [id number] DID#: [id number]
[2017-01-15] MEDS ORDERED: DIPHENHYDRAMINE 50 MG INJ ONE (11:00)
--- NOTE | 2017-01-15 11:53 | RADRPT ---
PROCEDURE: CT Chest without contrast. CLINICAL INDICATION: Lymphadenopathy and jaundice. TECHNIQUE: Multiple contiguous helical CT images of the chest were obtained without the administra tion of intravenous contrast. Coronal and sagittal reformatted images were obtained from the source images. CTDIvol (mGy): 11.27; Total Exam DLP (mGy-cm): 485.61. One or more of the following dose reduction techniques were utilized: - Automated exposure control. - Adjustment of the mA and/or kV according to patient size. - Use of iterative reconstruction technique. COMPARISON: MRI abdomen 01/14/2017. FINDINGS: Limited imaging of the lower neck is unremarkable. The heart is not enlarged. There is no pericardial effusion. There is no bulky lymphadenopathy of the mediastinum, mg or axilla. However, numerous small and scattered few prominent lymph nodes ar e present. For example, on image [id number], there is a 10 mm prevascular lymph node. Similarly prominent lymph nodes are seen within the bilateral axilla. The thoracic aorta is normal in caliber. The pul monary arteries are not enlarged. There is no pulmonary consolidation, pleural effusion or pulmonary nodule. Mild diffuse bronchial wa ll thickening is observed. Scattered reticular opacification is seen throughout the lung bases and may be partially due to atelectasis. Limited imaging of the upper abdomen demonstrates numerous prominent and enlarged lymph nodes throug hout the upper abdomen. There is a 2.0 cm lymph node adjacent to the gastric fundus. The kidneys ap pear symmetrically enlarged and nodular in contour. Vicarious excretion of contrast is observed with in the gallbladder lumen. An internal biliary stent is partially visualized. Skeletal structures are unremarkable. Chest wall soft tissues are unremarkable. IMPRESSION: Lymphadenopathy within the chest and upper abdomen. Mild diffuse bronchial wall thickening with scattered reticular opacification throughout the lung ba ses which may be partially due to atelectasis. No evidence of pulmonary consolidation or pulmonary nodule. RPTAT: HLST .Amanda Oswald MD, Date Time Electronically viewed and signed by .Amanda Oswald MD, MD on 01/15/2017 11:53 .T/
--- NOTE | 2017-01-15 14:15 | PN ---
Date/Time of Note Date/Time of Note DATE: 01/15/17 TIME: 14:04 Assessment/Plan VTE Prophylaxis VTE Prophylaxis Intervention: ambulation, SCD's Lines/Catheters IV Catheter Type (from Nrs): Peripheral IV Urinary Cath still in place: No Assessment/Plan Chief Complaint/Hosp Course . Problems: Assessment/Plan Assessment * Jaundice * Extrahepatic * Lymphadenopathy * consider Lymphoma,non Hodgkin(?) * ERCP /ERS/Stent placement 01/14/2017 Plan * continue present management * Monitor liver profile Subjective 24 Hr Interval Summary Free Text/Dictation * Course reviewed with RN * Patient seen and examined * 01/14/2017 ERCP/ERS /Stent placement * smooth narrowing distal CBD * paucity of intrahepatics * Less itchiness noted * denies abdominal pain,afebrile Exam/Review of Systems Vital Signs Vitals Vital Signs Date Time Temp Pulse Resp B/P Pulse Ox O2 Delivery O2 Flow Rate FiO2 01/15/17 08:06 98.3 64 18 117/64 98 01/14/17 19:30 Room Air 01/14/17 18:36 8.0 Intake and Output 01/14/17 01/14/17 01/15/17 15:00 23:00 07:00 Intake Total 466 ml 200 ml 694 ml Output Total 1000 ml Balance 466 ml 200 ml -306 ml Exam Constitutional: alert, oriented Psych: nl mood/affect Head: normocephalic Eyes: nl conjunctiva Neck: non-tender, supple Respiratory: clear to auscultation, normal air movement Cardiovascular: nl pulses, regular rate and rhythm Gastrointestinal: bowel sounds, non-tender, soft Musculoskeletal: nl extremities to inspection, nl gait and stance Extremities: normal pulses Skin: other (jaundice) Results Result Diagram: 01/14/17 0550 01/14/17 0550 Results 24 hrs Laboratory Tests Test 01/15/17 06:35 Erythrocyte Sedimentation Rate 140 H Uric Acid 6.1 Lactate Dehydrogenase 484 Carcinoembryonic Antigen 0.7 CA 19-9 Antigen 27.8 Immunoglobulin A 160 Immunoglobulin G 2166 H Immunoglobulin M 28 L Medications Medications Current Medications Morphine Sulfate (morphine) 3 mg Q4H PRN IM PAIN; Start 01/13/17 at 22:00 Ondansetron HCl 4 mg 4 mg Q6H PRN IV NAUSEA AND/OR VOMITING; Start 01/13/17 at 22:00 Dextrose/Sodium Chloride (D5-1/2ns) 1,000 ml @ 100 mls/hr Q10H IV Last administered on 01/15/17 04:09; Admin Dose 100 MLS/HR; Start 01/14/17 at 09:00 Hydroxyzine HCl (Atarax) 25 mg Q6H PRN NGT ITCHING Last administered on 05:37; Admin Dose 25 MG; Start 01/14/17 at 05:00 Zolpidem Tartrate (Ambien) 10 mg HS PRN PO INSOMNIA; Start 01/14/17 at 05:00 Diphenhydramine HCl (Benadryl) 25 mg Q6H PRN IM pruritis; Start 01/15/17 at 14: 00 NARESH COON MD Jan 15, 2017 14:14
[2017-01-15 14:49] LABS: ALBUMIN 3.2 g/dl (3.3-4.9); POTASSIUM 3.8 mmol/L (3.5-5.1)
[2017-01-15 14:51] LABS: BILIRUBIN,DIRECT 4.3 mg/dl (0.00-0.20); BILIRUBIN,INDIRECT 1.3 mg/dl (0-1.1); BILIRUBIN,TOTAL 5.6 mg/dl (0.2-1.3); CREATININE 1.09 mg/dl (0.61-1.24)
[2017-01-15 14:52] LABS: ALBUMIN/GLOBULIN RATIO 0.6; CALCIUM 9.2 mg/dl (8.4-10.2); TOTAL PROTEIN 8.5 g/dl (6.1-8.1)
--- NOTE | 2017-01-15 16:03 | PN ---
Date/Time of Note Date/Time of Note DATE: 01/15/17 TIME: 15:59 Assessment/Plan VTE Prophylaxis VTE Prophylaxis Intervention: SCD's Lines/Catheters IV [facility]from [facility] Peripheral IV Urinary Cath still in place: No Assessment/Plan Chief Complaint/Hosp Course Assessment and plan 1. Painless jaundice with associated pruritus. Patient did have abdominal ultrasound with evidence of lymphadenopathy in the region of the pancreatic head and epigastric region. There is also seen mild intrahepatic biliary duct dilation. There was seen moderate pericholecystic fluid and mild gallbladder wall thickening with no evidence of gallstones. Imaging suspect for neoplasm such as lymphoma. MRI of the abdomen with contrast is pending. Side Gluer was consulted. Oncology was consulted as well. s/p ERCP with stent. Continue with GI recs 2. Transaminitis likely secondary to #1. Monitor LFT. Side Gluer to follow. 3. Leukocytosis. Likely reactive. Monitor for S&S of fever 4. Normocytic normochromic anemia. Monitor level. 5. Hyperbilirubinemia secondary to #1. Monitor level. 6.Peripheral smear with suspect Hodgkin's versus non-Hodgkin's lymphoma. Follow up on final biopsy. Continue with oncologist recommendations.. Radiographic scans discussed with patient Disposition and plan: Follow-up with pathology area and follow-up with oncologist recommendations. Continue in-house monitoring for now. Antihistamines for pruritus Discussed plan of care with Dr. Thompson Problems: Subjective 24 Hr Interval Summary Free Text/Dictation Denies any pain at this time. no s/s of distress Exam/Review of Systems Vital Signs Vitals Vital Signs Date Time Temp Pulse Resp B/P Pulse Ox O2 Delivery O2 Flow Rate FiO2 01/15/17 08:06 98.3 64 18 117/64 98 01/14/17 19:30 Room Air 01/14/17 18:36 8.0 Intake and Output 01/14/17 01/14/17 01/15/17 15:00 23:00 07:00 Intake Total 466 ml 200 ml 694 ml Output Total 1000 ml Balance 466 ml 200 ml -306 ml Exam Constitutional: alert, oriented Psych: nl mood/affect Head: normocephalic Eyes: icteric (less) Neck: non-tender Respiratory: clear to auscultation, normal air movement Cardiovascular: regular rate and rhythm Gastrointestinal: non-tender, soft Extremities: normal pulses Neurological: PNEUMATIC SYSTEMS OPERATOR II-XII intact, nl mental status, nl speech Results Result Diagram: 01/14/17 0550 01/15/17 1420 Results 24 hrs Laboratory Tests Test 01/15/17 06:35 01/15/17 14:20 Erythrocyte Sedimentation Rate 140 H Uric Acid 6.1 Lactate Dehydrogenase 484 Carcinoembryonic Antigen 0.7 CA 19-9 Antigen 27.8 Immunoglobulin A 160 Immunoglobulin G 2166 H Immunoglobulin M 28 L Sodium Level 141 Potassium Level 3.8 Chloride Level 102 Carbon Dioxide Level 28 Anion Gap 15 Blood Urea Nitrogen 15 Creatinine 1.09 Glucose Level 102 Calcium Level 9.2 Total Bilirubin 5.6 H Direct Bilirubin 4.30 H Indirect Bilirubin 1.3 H Aspartate Amino Transf (AST/SGOT) 48 H Alanine Aminotransferase (ALT/SGPT) 79 H Alkaline Phosphatase 557 H Total Protein 8.5 H Albumin 3.2 L Globulin 5.30 H Albumin/Globulin Ratio 0.60 Medications Medications Current Medications Morphine Sulfate (morphine) 3 mg Q4H PRN IM PAIN; Start 01/13/17 at 22:00 Ondansetron HCl 4 mg 4 mg Q6H PRN IV NAUSEA AND/OR VOMITING; Start 01/13/17 at 22:00 Dextrose/Sodium Chloride (D5-1/2ns) 1,000 ml @ 100 mls/hr Q10H IV Last administered on 01/15/17 04:09; Admin Dose 100 MLS/HR; Start 01/14/17 at 09:00 Hydroxyzine HCl (Atarax) 25 mg Q6H PRN NGT ITCHING Last administered on 05:37; Admin Dose 25 MG; Start 01/14/17 at 05:00 Zolpidem Tartrate (Ambien) 10 mg HS PRN PO INSOMNIA; Start 01/14/17 at 05:00 Diphenhydramine HCl (Benadryl) 25 mg Q6H PRN IM pruritis; Start 01/15/17 at 14: 00 PATRICIA ARIAS Jan 15, 2017 16:03
[2017-01-15 19:13] VITALS: BP 126/76; RESP 20
[2017-01-15] MEDS: ACETAMINOPHEN 500 MG TAB PO PRN (23:38)
[2017-01-16] MEDS: DIPHENHYDRAMINE 50 MG INJ IM PRN ×2 (02:17→11:46)
--- NOTE | 2017-01-16 04:07 | GILP ---
DATE OF PROCEDURE: PROCEDURE: Endoscopic retrograde cholangiopancreatography with endoscopic retrograde sphincterotomy and endoscopic biliary stent placement. PREMEDICATION: General anesthesia by anesthesiologist. SURGEON: Naresh James MD. INSTRUMENT USED: Side viewing panendoscope. TECHNIQUE: After informed consent, with the patient/relatives understanding the procedure, its indic ations, potential risks and complications, including but not limited to: allergic reaction, bleeding , perforation or infection, and after all pertinent questions were answered to the patients satisfac tion, the patient/relatives signed witnessed informed consent. Following this, premedication was administered slowly IV push under careful cardiovascular and respi ratory monitoring with pulse oximetry, automatic blood pressure and monitoring analyst. Once the sedative effect was achieved the patient was place in the prone position in the radiology s pecial procedures suite; the side viewing panendoscope was introduced and advanced under visual cont rol. Careful examination of the upper gastrointestinal tract, both on insertion as well as withdrawal of the instrument disclosed the following findings: ESOPHAGUS: The mucosa of the entire esophagus appears within normal limits. There is no evidence of esophagitis, varices, neoplasm or stricture. No Hiatal Hernia identified. STOMACH: Upon entrance to the stomach air was insufflated, the gastric polanco distended normally. Th e mucosa of the fundus, body and antrum of the stomach was carefully examined both head-on and on re troflexion, and shows no abnormalities. There is no evidence of gastritis, ulcers or neoplasm. PYLORUS: The pylorus appears patent and within normal limits, with no evidence of gastric outlet ob struction. DUODENUM: The duodenal mucosa was carefully examined in the duodenal bulb as well as the second por tion of the duodenum and appears unremarkable with no evidence of duodenitis, ulcer or neoplasm. AMPULLA OF VATER: The ampulla was identified and appears unremarkable. CANNULATION: Somewhat difficult, and we utilized guidewire which was placed in the pancreatic duct. We then proceeded to utilize needle knife sphincterotome to gain access into the common bile duct which was successful without evidence of complication. A cholangiogram was then obtained. CHOLANGIOGRAM: Showed smooth narrowing of the distal common bile duct. No intraductal pathology is noted. There is also paucity of the intrahepatic ducts that may represent infiltrative process in the liver. A [place]er-10 7 cm stent was placed without difficulty with excellent drainage. IMPRESSION: 1. Small narrowing of the distal common bile duct suggesting extrinsic compression. 2. Paucity of intrahepatic raising questions of liver infiltrative process. 3. Post-precut sphincterotomy post-placement of [place]er-10 7 cm stent. PLAN: The patient will be closely monitored, and further recommendation will depend on his clinical course. ____ management pending. The patient was clearly informed of the need to remove or replac e stent within 3 months. Dictated By: NARESH JAMES MS/ERIC Conf#: [id number] DID#: [id number]
[2017-01-16 04:26] LABS: PROTEIN, TOTAL 6.6 g/dL (6.1-8.1)
[2017-01-16 05:57] LABS: ADD SCAN DIFF NO
[2017-01-16 06:02] LABS: HEMOGLOBIN 10.6 g/dl (14.0-18.0); MEAN CORPUSCULAR HEMOGLOBIN 28.6 pg (29.0-33.0); MEAN CORPUSCULAR HGB CONC 34.2 g/dl (32.0-37.0); MEAN CORPUSCULAR VOLUME 83.6 fl (82.0-101.0); PLATELET COUNT 458 10^3/UL (140-415); RED BLOOD COUNT 3.71 10^6/ul (4.70-6.10); RED CELL DISTRIBUTION WIDTH 14.6 % (11.5-14.5); WHITE BLOOD COUNT 9.6 10^3/ul (4.8-10.8)
[2017-01-16 06:11] LABS: ALBUMIN 3.2 g/dl (3.3-4.9)
[2017-01-16 06:12] LABS: CALCIUM 8.9 mg/dl (8.4-10.2); CREATININE 1.03 mg/dl (0.61-1.24); POTASSIUM 4.4 mmol/L (3.5-5.1)
[2017-01-16 06:13] LABS: BILIRUBIN,DIRECT 4.3 mg/dl (0.00-0.20); BILIRUBIN,INDIRECT 1.4 mg/dl (0-1.1); BILIRUBIN,TOTAL 5.7 mg/dl (0.2-1.3); TOTAL PROTEIN 8.3 g/dl (6.1-8.1)
[2017-01-16 07:52] VITALS: BP 118/74; RESP 18
--- NOTE | 2017-01-16 08:38 | CONS ---
Date/Time of Note Date/Time of Note DATE: 01/16/17 TIME: 08:34 Assessment/Plan Assessment/Plan Additional Assessment/Plan Assessment * Jaundice * Likely extrahepatic vs hepatic etiology MRCP 01/14/2017 Subtle infiltration of the pancreatic body, concerning for a lymphomatous involvement of the pancreas. There is associated peripancreatic, retroperitoneal, and gastrohepatic lymphadenopathy.Numerous hyporvascular lesions occupying the bilateral kidneys, radiographically consistent with renal lymphoma Diffuse mild intrahepatic bile duct dilatation. There is also marrow thickening and hyperenhancement of the extrahepatic biliary system, which is a nonspecific finding and is seen in cases of cholangitis. However, the possibility of lymphomatous involvement of the biliary system is raised, albeit rare, given the findings in the pancreas and kidneys. * s/p ERCP * 1. Small narrowing of the distal common bile duct suggesting extrinsic compression. * 2. Paucity of intrahepatic raising questions of liver infiltrative process * 3. Post-precut sphincterotomy post-placement of Yi-10 7 cm stent. Plan * Remove stent in 3 months * continue present management * Monitor liver profile * Further recommendations pending clinical * Patient seen in collaboration with Dr. James Consultation Date/Type/Reason Admit Date/Time Jan 13, 2017 at 20:28 Initial Consult Date 01/14/17 Type of Consultation: Gastroenterology Referring Provider: BECCA QUEVEDO MD 24 HR Interval Summary Free Text/Dictation Tolerating diet Hemoglobin trending downward with stable LFTs trending upward Exam/Review of Systems Vital Signs Vitals Vital Signs Date Time Temp Pulse Resp B/P Pulse Ox O2 Delivery O2 Flow Rate FiO2 01/16/17 07:52 97.4 85 18 118/74 98 01/14/17 19:30 Room Air 01/14/17 18:36 8.0 Intake and Output 01/15/17 01/15/17 01/16/17 15:00 23:00 07:00 Intake Total 600 ml 1240 ml 1200 ml Output Total 1600 ml 2000 ml Balance 600 ml -360 ml -800 ml Exam Constitutional: alert, oriented, well developed Head: atraumatic, normocephalic Eyes: EOMI, PERRL, icteric, nl conjunctiva, nl lids ENMT: nl external ears & nose, nl lips & teeth, nl nasal mucosa & septum Neck: non-tender, other (lymph nodes), supple Respiratory: clear to auscultation, normal air movement Cardiovascular: nl pulses, regular rate and rhythm Gastrointestinal: bowel sounds, nl liver, spleen, non-tender, soft Musculoskeletal: nl extremities to inspection, nl gait and stance Extremities: normal pulses Neurological: TELEPHONE CLERKS SUPERVISOR II-XII intact, nl mental status, nl speech, nl strength Skin: nl turgor, other (jaundice), No rash or lesions Lymph: enlarged (submandibular,inguinal lymph nodes) Results Result Diagram: 01/16/17 0500 01/16/17 0500 Results 24 hrs Laboratory Tests Test 01/15/17 14:20 01/16/17 05:00 Sodium Level 141 136 Potassium Level 3.8 4.4 Chloride Level 102 102 Carbon Dioxide Level 28 27 Anion Gap 15 11 Blood Urea Nitrogen 15 13 Creatinine 1.09 1.03 Glucose Level 102 100 Calcium Level 9.2 8.9 Total Bilirubin 5.6 H 5.7 H Direct Bilirubin 4.30 H 4.30 H Indirect Bilirubin 1.3 H 1.4 H Aspartate Amino Transf (AST/SGOT) 48 H 53 H Alanine Aminotransferase (ALT/SGPT) 79 H 83 H Alkaline Phosphatase 557 H 546 H Total Protein 8.5 H 8.3 H Albumin 3.2 L 3.2 L Globulin 5.30 H Albumin/Globulin Ratio 0.60 White Blood Count 9.6 Red Blood Count 3.71 L Hemoglobin 10.6 L Hematocrit 31.0 L Mean Corpuscular Volume 83.6 Mean Corpuscular Hemoglobin 28.6 L Mean Corpuscular Hemoglobin Concent 34.2 Red Cell Distribution Width 14.6 H Platelet Count 458 H Mean Platelet Volume 9.0 Medications Medications Current Medications Morphine Sulfate (morphine) 3 mg Q4H PRN IM PAIN; Start 01/13/17 at 22:00 Ondansetron HCl (Zofran Inj) 4 mg Q6H PRN IV NAUSEA AND/OR VOMITING; Start at 22:00 Hydroxyzine HCl (Atarax) 25 mg Q6H PRN NGT ITCHING Last administered on t 05:37; Admin Dose 25 MG; Start 01/14/17 at 05:00 Zolpidem Tartrate (Ambien) 10 mg HS PRN PO INSOMNIA; Start 01/14/17 at 05:00 Diphenhydramine HCl (Benadryl) 25 mg Q6H PRN IM pruritis Last administered on 02:17; Admin Dose 25 MG; Start 01/15/17 at 14:00 Acetaminophen (Tylenol Tab) 500 mg Q6H PRN PO PAIN AND OR ELEVATED TEMP Last administered on 01/15/17 23:38; Admin Dose 500 MG; Start 01/16/17 at 00:00 BELKIS BILL Jan 16, 2017 08:38
--- NOTE | 2017-01-16 10:03 | PN ---
DATE: 01/16/2017 TYPE OF CONSULTATION: Hematology/Oncology SUBJECTIVE: The patient states that for 24 hours, he thought his urine had cleared and that his pru ritus had lessened. Now, he states, however, the pruritus has returned and he feels his urine is da rker. The patient has no complaints of fevers or night sweats at this time. OBJECTIVE: VITAL SIGNS: Temperature 97.4, pulse 85 per minute and regular, respirations 18, blood pressure 118 /74, pulse oximetry 98% on room air. SKIN: No ecchymosis or petechiae. There are some areas of excoriation due to scratching. There ar e tattoos present. HEENT: No mucosal lesions. There is 1 to 2+ scleral icterus. No mucosal lesions. NECK: Supple, no jugular venous distention or thyroid enlargement. CHEST: Clear to auscultation and percussion. No rhonchi, wheezes, rales or rubs. NODES: No palpable lymphadenopathy in any lymph node bearing area. ABDOMEN: Soft, no masses, no ascites. EXTREMITIES: No clubbing, edema or cyanosis. No palpable cords or Homans sign. NEUROLOGIC: Normal. LABORATORY DATA: White count today is 9600, hemoglobin 10.6, hematocrit 31 and platelet count 458,0 00. Bilirubin total is 5.7, direct 4.3, alkaline phosphatase 546. The LDH is 484 and uric acid 6.1 . Sedimentation rate was 140. Quantitative immunoglobulins reveal an elevated IgG of 2166. IgM is decreased at 48. Immunofixatio n is pending. Flow cytometry has been sent on peripheral blood and is pending. ASSESSMENT: 1. Obstructive jaundice. 2. Lymphadenopathy with circulating abnormal lymphocytes, probable lymphoma. PLAN: I have discussed the situation with the radiologist. There is no node which is acceptable to biopsy. Also, the MRI does not suggest marrow infiltration. The kidneys are abnormal and suggest infiltration by possible lymphomatous process. We will attempt a renal biopsy. We will also request an HIV antibody screen. Dictated By: ROSEMARY SANTIZO MD, SR/NTS Conf#: [id number] DID#: [id number]
[2017-01-16 10:40] LABS: IRON 67 ug/dl (35-150)
[2017-01-16 10:49] LABS: TOTAL IRON BINDING CAPACITY 333 ug/dl (241-421)
[2017-01-16 12:15] LABS: BASOPHIL # 0.3 10^3/ul (0.0-0.1); EOSINOPHILS # 1.8 10^3/ul (0.0-0.5); LYMPHOCYTES # 1.3 10^3/ul (0.8-2.9); MONOCYTE # 0.4 10^3/ul (0.3-0.9); MYELOCYTES # 0.1
--- NOTE | 2017-01-16 15:19 | PN ---
Date/Time of Note Date/Time of Note DATE: 01/16/17 TIME: 15:17 Assessment/Plan VTE Prophylaxis VTE Prophylaxis Intervention: SCD's Lines/Catheters IV [facility] Type (from [facility] Saline Lock Urinary Cath still in place: No Assessment/Plan Chief Complaint/Hosp Course Assessment and plan 1. jaundice with associated pruritus. Patient did have abdominal ultrasound with evidence of lymphadenopathy in the region of the pancreatic head and epigastric region. There is also seen mild intrahepatic biliary duct dilation. There was seen moderate pericholecystic fluid and mild gallbladder wall thickening with no evidence of gallstones. Imaging suspect for neoplasm such as lymphoma. MRI of the abdomen with contrast is pending. Senior Software Quality Engineer was consulted. Oncology was consulted as well. s/p ERCP with stent. Continue with aircraft fueler recommendations. 2. Transaminitis likely secondary to #1. Monitor LFT. 3. Leukocytosis. Likely reactive. Monitor for S&S of fever 4. Normocytic normochromic anemia. Monitor level. 5. Hyperbilirubinemia secondary to #1. Monitor level. 6.Peripheral smear with suspect Hodgkin's versus non-Hodgkin's lymphoma. Follow up on final biopsy. Continue with oncologist recommendations.. Tentative plan for renal biopsy Disposition and plan: Tentative plan for renal biopsy. Follow-up with consultants. Discussed plan of care with Dr. Thompson Problems: Subjective 24 Hr Interval Summary Free Text/Dictation Still reports having abdominal pain diffusely. Also reports having dark urine again Exam/Review of Systems Vital Signs Vitals Vital Signs Date Time Temp Pulse Resp B/P Pulse Ox O2 Delivery O2 Flow Rate FiO2 01/16/17 07:52 97.4 85 18 118/74 98 01/14/17 19:30 Room Air 01/14/17 18:36 8.0 Intake and Output 01/15/17 01/15/17 01/16/17 15:00 23:00 07:00 Intake Total 600 ml 1240 ml 1200 ml Output Total 1600 ml 2000 ml Balance 600 ml -360 ml -800 ml Exam Constitutional: alert, oriented Psych: nl mood/affect Head: normocephalic Eyes: icteric Neck: non-tender, supple, No jvd Respiratory: clear to auscultation, normal air movement Cardiovascular: regular rate and rhythm Gastrointestinal: tender (General abdomen) Musculoskeletal: nl extremities to inspection Extremities: normal pulses Neurological: THERAPEUTIC SPECIALIST II-XII intact, nl mental status, nl speech Skin: other (jaundice) Results Result Diagram: 01/16/17 0500 01/16/17 0500 Results 24 hrs Laboratory Tests Test 01/16/17 05:00 White Blood Count 9.6 Red Blood Count 3.71 L Hemoglobin 10.6 L Hematocrit 31.0 L Mean Corpuscular Volume 83.6 Mean Corpuscular Hemoglobin 28.6 L Mean Corpuscular Hemoglobin Concent 34.2 Red Cell Distribution Width 14.6 H Platelet Count 458 H Mean Platelet Volume 9.0 Neutrophils % 52.0 Band Neutrophils % 7.0 H Lymphocytes % 14.0 L Monocytes % 4.0 Eosinophils % 19.0 H Basophils % 3.0 H Myelocytes % 1.0 H Neutrophils # 5.0 Lymphocytes # 1.3 Monocytes # 0.4 Eosinophils # 1.8 H Basophils # 0.3 H Myelocytes # 0.1 Sodium Level 136 Potassium Level 4.4 Chloride Level 102 Carbon Dioxide Level 27 Anion Gap 11 Blood Urea Nitrogen 13 Creatinine 1.03 Glucose Level 100 Calcium Level 8.9 Iron Level 67 Total Iron Binding Capacity 333 Percent Iron Saturation 20 L Ferritin 554.0 H Total Bilirubin 5.7 H Direct Bilirubin 4.30 H Indirect Bilirubin 1.4 H Aspartate Amino Transf (AST/SGOT) 53 H Alanine Aminotransferase (ALT/SGPT) 83 H Alkaline Phosphatase 546 H Total Protein 8.3 H Albumin 3.2 L HIV (1&2) Antibody NEGATIVE Medications Medications Current Medications Morphine Sulfate (morphine) 3 mg Q4H PRN IM PAIN; Start 01/13/17 at 22:00 Ondansetron HCl (Zofran Inj) 4 mg Q6H PRN IV NAUSEA AND/OR VOMITING; Start at 22:00 Hydroxyzine HCl (Atarax) 25 mg Q6H PRN NGT ITCHING Last administered on 05:37; Admin Dose 25 MG; Start 01/14/17 at 05:00 Zolpidem Tartrate (Ambien) 10 mg HS PRN PO INSOMNIA; Start 01/14/17 at 05:00 Diphenhydramine HCl (Benadryl) 25 mg Q6H PRN IM pruritis Last administered on 11:46; Admin Dose 25 MG; Start 01/15/17 at 14:00 Acetaminophen (Tylenol Tab) 500 mg Q6H PRN PO PAIN AND OR ELEVATED TEMP Last administered on 01/15/17t 23:38; Admin Dose 500 MG; Start 01/16/17 at 00:00 PATRICIA ARIAS Jan 16, 2017 15:19
[2017-01-16 20:45] VITALS: BP 119/68; RESP 18
[2017-01-16 22:33] LABS: ABNORMAL PROTEIN BAND 1 0.4 g/dL (NONE DETECTED)
[2017-01-17 06:11] LABS: ADD SCAN DIFF NO
[2017-01-17 06:32] LABS: ABNORMAL IP MESSAGE 1; HEMATOCRIT 32.1 % (42.0-52.0); HEMOGLOBIN 11.2 g/dl (14.0-18.0); MEAN CORPUSCULAR HEMOGLOBIN 29.1 pg (29.0-33.0); MEAN CORPUSCULAR HGB CONC 34.9 g/dl (32.0-37.0); MEAN CORPUSCULAR VOLUME 83.4 fl (82.0-101.0); MEAN PLATELET VOLUME 9.2 fl (7.4-10.4); PLATELET COUNT 506 10^3/UL (140-415); RED BLOOD COUNT 3.85 10^6/ul (4.70-6.10); RED CELL DISTRIBUTION WIDTH 14.6 % (11.5-14.5); WHITE BLOOD COUNT 10.4 10^3/ul (4.8-10.8)
[2017-01-17 06:56] LABS: ALBUMIN 3.2 g/dl (3.3-4.9); BILIRUBIN,DIRECT 4.3 mg/dl (0.00-0.20); BILIRUBIN,INDIRECT 1.5 mg/dl (0-1.1); BILIRUBIN,TOTAL 5.8 mg/dl (0.2-1.3); TOTAL PROTEIN 7.9 g/dl (6.1-8.1)
[2017-01-17 07:02] LABS: POTASSIUM 4.1 mmol/L (3.5-5.1)
[2017-01-17 07:05] LABS: CREATININE 1.19 mg/dl (0.61-1.24)
[2017-01-17 07:06] LABS: CALCIUM 9.3 mg/dl (8.4-10.2)
--- NOTE | 2017-01-17 08:21 | CONS ---
Date/Time of Note Date/Time of Note DATE: 01/17/17 TIME: 08:17 Consult Date/Type/Reason Admit Date/Time Jan 13, 2017 at 20:28 Initial Consult Date 01/14/17 Type of Consultation: Gastroenterology Ordering Provider: BECCA QUEVEDO MD Subjective Pt continues to have itching overnight. No fevers or chills. Urine is dark. Appetite poor. Objective Vital Signs Date Time Temp Pulse Resp B/P Pulse Ox O2 Delivery O2 Flow Rate FiO2 01/16/17 20:45 99.5 94 18 119/68 98 01/14/17 19:30 Room Air 01/14/17 18:36 8.0 Intake and Output 01/16/17 01/16/17 01/17/17 15:00 23:00 07:00 Intake Total 1320 ml 200 ml Output Total 300 ml Balance 1320 ml -100 ml Exam NAD/A&Ox4 Jaundiced Icteric B Cervical adenopathy appreciated-shoddy RRR No m/g/r CTA B Difficult to exam abdomen-quite muscular No rebound or guarding No c/c/e Results/Medications Result Diagram: 01/17/17 0520 01/17/17 0520 Results 24 hrs Laboratory Tests Test 01/17/17 05:20 White Blood Count 10.4 Red Blood Count 3.85 L Hemoglobin 11.2 L Hematocrit 32.1 L Mean Corpuscular Volume 83.4 Mean Corpuscular Hemoglobin 29.1 Mean Corpuscular Hemoglobin Concent 34.9 Red Cell Distribution Width 14.6 H Platelet Count 506 H Mean Platelet Volume 9.2 Neutrophils % Lymphocytes % Monocytes % Eosinophils % Basophils % Nucleated Red Blood Cells % Neutrophils # Lymphocytes # Monocytes # Eosinophils # Basophils # Nucleated Red Blood Cells # Sodium Level 138 Potassium Level 4.1 Chloride Level 101 Carbon Dioxide Level 26 Anion Gap 15 Blood Urea Nitrogen 19 Creatinine 1.19 Glucose Level 101 Calcium Level 9.3 Total Bilirubin 5.8 H Direct Bilirubin 4.30 H Indirect Bilirubin 1.5 H Aspartate Amino Transf (AST/SGOT) 62 H Alanine Aminotransferase (ALT/SGPT) 85 H Alkaline Phosphatase 566 H Total Protein 7.9 Albumin 3.2 L Medications Current Medications Morphine Sulfate (morphine) 3 mg Q4H PRN IM PAIN; Start 01/13/17 at 22:00 Ondansetron HCl (Zofran Inj) 4 mg Q6H PRN IV NAUSEA AND/OR VOMITING; Start at 22:00 Hydroxyzine HCl (Atarax) 25 mg Q6H PRN NGT ITCHING Last administered on 05:37; Admin Dose 25 MG; Start 01/14/17 at 05:00 Zolpidem Tartrate (Ambien) 10 mg HS PRN PO INSOMNIA; Start 01/14/17 at 05:00 Acetaminophen (Tylenol Tab) 500 mg Q6H PRN PO PAIN AND OR ELEVATED TEMP Last administered on 01/15/17 23:38; Admin Dose 500 MG; Start 01/16/17 at 00:00 Diphenhydramine HCl (Benadryl) 50 mg Q6H PRN IV ITCHING; Start 01/16/17 at 21: 30 Assessment/Plan Chief Complaint/Hosp Course 1. Jaundice/elevated LFTs/Diffuse adenopathy particularly involving the kidneys , pancreas, liver, and multiple lymph nodes with elevated ESR -Need to rule out malignant process with lymphoma being highest on the differential. Excisional biopsy preferred. Awaiting kidney bx on Thursday but can consider excisional biopsy of another lymph node as well. Screen for HIV, Virial hepatitis, EBV if not already done. Cont anti-histamines for symptomatic control of itching. Problems: NISSA CHAUHAN Jan 17, 2017 08:21
[2017-01-17 09:58] LABS: BASOPHIL # 0.1 10^3/ul (0.0-0.1); EOSINOPHILS # 1.7 10^3/ul (0.0-0.5); LYMPHOCYTES # 1.2 10^3/ul (0.8-2.9); MONOCYTE # 0.2 10^3/ul (0.3-0.9)
[2017-01-17 09:59] LABS: PLATELET ESTIMATE PLT APPEAR INCREASED
--- NOTE | 2017-01-17 13:36 | PN ---
Date/Time of Note Date/Time of Note DATE: 01/17/17 TIME: 13:33 Assessment/Plan VTE Prophylaxis VTE Prophylaxis Intervention: ambulation, SCD's Lines/Catheters IV [facility]from [facility] Saline Lock Urinary Cath still in place: No Assessment/Plan Chief Complaint/Hosp Course Assessment and plan 1. Jaundice and pruritus. Patient also with Jaundice with associated pruritus. Patient did have abdominal ultrasound with evidence of lymphadenopathy in the region of the pancreatic head and epigastric region. There is also seen mild intrahepatic biliary duct dilation. There was seen moderate pericholecystic fluid and mild gallbladder wall thickening with no evidence of gallstones. Imaging suspect for neoplasm such as lymphoma. Assembler Dc Field Ring following. Oncology was consulted as well. s/p ERCP with stent. Continue with aircraft launch and recovery technician recommendations. Tentative plan renal biopsy. We'll follow-up 2. Transaminitis likely secondary to #1. Monitor LFT. 3. Leukocytosis. Likely reactive. Monitor for S&S of fever 4. Normocytic normochromic anemia. Monitor level. 5. Hyperbilirubinemia secondary to #1. Monitor level. 6.Peripheral smear with suspect Hodgkin's versus non-Hodgkin's lymphoma. Follow up on final biopsy. Continue with oncologist recommendations.. Tentative plan for renal biopsy Disposition and plan: Tentative plan for renal biopsy. Follow-up with consultants. cont antihistamine for pruritus Discussed plan of care with Dr. Thompson Problems: Subjective 24 Hr Interval Summary Free Text/Dictation No plan distress. Does report having some abdominal discomfort Exam/Review of Systems Vital Signs Vitals Vital Signs Date Time Temp Pulse Resp B/P Pulse Ox O2 Delivery O2 Flow Rate FiO2 01/16/17 20:45 99.5 94 18 119/68 98 01/14/17 19:30 Room Air 01/14/17 18:36 8.0 Intake and Output 01/16/17 01/16/17 01/17/17 15:00 23:00 07:00 Intake Total 1320 ml 200 ml Output Total 300 ml Balance 1320 ml -100 ml Exam Constitutional: alert Psych: nl mood/affect Head: normocephalic Eyes: icteric Neck: non-tender, supple, No jvd Respiratory: clear to auscultation, normal air movement Cardiovascular: regular rate and rhythm Gastrointestinal: non-tender, soft Neurological: AUTOMOBILE ACCESSORIES INSTALLER II-XII intact, nl mental status, nl speech, other Skin: other () Results Result Diagram: 01/17/17 0520 01/17/17 0520 Results 24 hrs Laboratory Tests Test 01/17/17 05:20 White Blood Count 10.4 Red Blood Count 3.85 L Hemoglobin 11.2 L Hematocrit 32.1 L Mean Corpuscular Volume 83.4 Mean Corpuscular Hemoglobin 29.1 Mean Corpuscular Hemoglobin Concent 34.9 Red Cell Distribution Width 14.6 H Platelet Count 506 H Mean Platelet Volume 9.2 Neutrophils % 67.0 Lymphocytes % 12.0 L Reactive Lymphocytes % 1.0 Monocytes % 2.0 Eosinophils % 16.0 H Basophils % 1.0 Metamyelocytes % 1.0 H Nucleated Red Blood Cells % Neutrophils # 7.0 Lymphocytes # 1.2 Monocytes # 0.2 L Eosinophils # 1.7 H Basophils # 0.1 Metamyelocytes # 0.1 Nucleated Red Blood Cells # Platelet Estimate PLT APPEAR INCREASED Sodium Level 138 Potassium Level 4.1 Chloride Level 101 Carbon Dioxide Level 26 Anion Gap 15 Blood Urea Nitrogen 19 Creatinine 1.19 Glucose Level 101 Calcium Level 9.3 Total Bilirubin 5.8 H Direct Bilirubin 4.30 H Indirect Bilirubin 1.5 H Aspartate Amino Transf (AST/SGOT) 62 H Alanine Aminotransferase (ALT/SGPT) 85 H Alkaline Phosphatase 566 H Total Protein 7.9 Albumin 3.2 L Medications Medications Current Medications Morphine Sulfate (morphine) 3 mg Q4H PRN IM PAIN; Start 01/13/17 at 22:00 Ondansetron HCl (Zofran Inj) 4 mg Q6H PRN IV NAUSEA AND/OR VOMITING; Start at 22:00 Hydroxyzine HCl (Atarax) 25 mg Q6H PRN NGT ITCHING Last administered on 05:37; Admin Dose 25 MG; Start 01/14/17 at 05:00 Zolpidem Tartrate (Ambien) 10 mg HS PRN PO INSOMNIA; Start 01/14/17 at 05:00 Acetaminophen (Tylenol Tab) 500 mg Q6H PRN PO PAIN AND OR ELEVATED TEMP Last administered on 01/15/17 23:38; Admin Dose 500 MG; Start 01/16/17 at 00:00 Diphenhydramine HCl (Benadryl) 50 mg Q6H PRN IV ITCHING; Start 01/16/17 at 21: 30 PATRICIA ARIAS Jan 17, 2017 13:36
[2017-01-17 20:00] VITALS: BP 106/65
[2017-01-17 22:35] VITALS: PULSE 106
[2017-01-18 01:58] VITALS: BP 120/66; PULSE 90; RESP 20
[2017-01-18 04:20] VITALS: BP 110/65; RESP 18
[2017-01-18 06:13] LABS: ADD SCAN DIFF NO
[2017-01-18 06:16] LABS: ABNORMAL IP MESSAGE 1; HEMATOCRIT 28.7 % (42.0-52.0); MEAN CORPUSCULAR HEMOGLOBIN 28.7 pg (29.0-33.0); MEAN CORPUSCULAR HGB CONC 34.8 g/dl (32.0-37.0); MEAN CORPUSCULAR VOLUME 82.2 fl (82.0-101.0); MEAN PLATELET VOLUME 9.3 fl (7.4-10.4); PLATELET COUNT 490 10^3/UL (140-415); RED BLOOD COUNT 3.49 10^6/ul (4.70-6.10); RED CELL DISTRIBUTION WIDTH 14.4 % (11.5-14.5); WHITE BLOOD COUNT 10.6 10^3/ul (4.8-10.8)
[2017-01-18 06:39] LABS: CALCIUM 8.8 mg/dl (8.4-10.2); CREATININE 1.07 mg/dl (0.61-1.24); POTASSIUM 3.8 mmol/L (3.5-5.1)
[2017-01-18 07:56] VITALS: BP 130/78; RESP 18
--- NOTE | 2017-01-18 08:21 | CONS ---
Date/Time of Note Date/Time of Note DATE: 01/18/17 TIME: 08:18 Consult Date/Type/Reason Admit Date/Time Jan 13, 2017 at 20:28 Initial Consult Date 01/14/17 Type of Consultation: Gastroenterology Ordering Provider: BECCA QUEVEDO MD Subjective Continues to have itching. Had one episode in which itching was better yesterday and urine cleared a bit now. Now urine is dark again this am and itching is back despite hydroxyzine and Benadryl. No night sweats. Objective Vital Signs Date Time Temp Pulse Resp B/P Pulse Ox O2 Delivery O2 Flow Rate FiO2 01/18/17 07:56 97.7 105 18 130/78 95 01/14/17 19:30 Room Air 01/14/17 18:36 8.0 Intake and Output 01/17/17 01/17/17 01/18/17 15:00 23:00 07:00 Intake Total 600 ml 480 ml Output Total 800 ml 800 ml Balance -200 ml -320 ml Results/Medications Result Diagram: 01/18/17 0512 01/18/17 0512 Results 24 hrs Laboratory Tests Test 01/18/17 05:12 White Blood Count 10.6 Red Blood Count 3.49 L Hemoglobin 10.0 L Hematocrit 28.7 L Mean Corpuscular Volume 82.2 Mean Corpuscular Hemoglobin 28.7 L Mean Corpuscular Hemoglobin Concent 34.8 Red Cell Distribution Width 14.4 Platelet Count 490 H Mean Platelet Volume 9.3 Neutrophils % Lymphocytes % Monocytes % Neutrophils # Lymphocytes # Monocytes # Sodium Level 133 L Potassium Level 3.8 Chloride Level 101 Carbon Dioxide Level 25 Anion Gap 11 Blood Urea Nitrogen 21 H Creatinine 1.07 Glucose Level 161 Calcium Level 8.8 Medications Current Medications Morphine Sulfate (morphine) 3 mg Q4H PRN IM PAIN; Start 01/13/17 at 22:00 Ondansetron HCl (Zofran Inj) 4 mg Q6H PRN IV NAUSEA AND/OR VOMITING; Start at 22:00 Hydroxyzine HCl (Atarax) 25 mg Q6H PRN NGT ITCHING Last administered on t 05:37; Admin Dose 25 MG; Start 01/14/17 at 05:00 Zolpidem Tartrate (Ambien) 10 mg HS PRN PO INSOMNIA; Start 01/14/17 at 05:00 Acetaminophen (Tylenol Tab) 500 mg Q6H PRN PO PAIN AND OR ELEVATED TEMP Last administered on 01/15/17t 23:38; Admin Dose 500 MG; Start 01/16/17 at 00:00 Diphenhydramine HCl (Benadryl) 50 mg Q6H PRN IV ITCHING; Start 01/16/17 at 21: 30 Assessment/Plan Chief Complaint/Hosp Course 1. Jaundice/elevated LFTs/Diffuse adenopathy particularly involving the kidneys , pancreas, liver, and multiple lymph nodes with elevated ESR -Need to rule out malignant process with lymphoma being highest on the differential. Excisional biopsy preferred. Awaiting kidney bx on Thursday but can consider excisional biopsy of another lymph node as well. Screen for HIV, Virial hepatitis, EBV if not already done. Cont anti-histamines for symptomatic control of itching. Problems: (1) Jaundice Additional Assessment/Plan Kidney bx in am to help investigate etiology of adenopathy and jaundice. Add Claritin prn for itching. Further recs after biopsy. NISSA CHAUHAN Jan 18, 2017 08:21
[2017-01-18] MEDS ORDERED: LORATADINE 10 MG TAB PO PRN (08:30)
[2017-01-18] MEDS: DIPHENHYDRAMINE 50 MG INJ IV PRN (09:44)
[2017-01-18 10:48] LABS: BASOPHIL # 0.4 10^3/ul (0.0-0.1); EOSINOPHILS # 2.8 10^3/ul (0.0-0.5); LYMPHOCYTES # 0.8 10^3/ul (0.8-2.9); MONOCYTE # 0.2 10^3/ul (0.3-0.9); NEUTROPHIL # 6.4 10^3/ul (1.6-7.5); PLATELET ESTIMATE PLT APPEAR INCREASED
[2017-01-18] MEDS: hydrOXYzine HCL 25 MG TAB NGT PRN (12:38)
--- NOTE | 2017-01-18 15:03 | PN ---
Date/Time of Note Date/Time of Note DATE: 01/18/17 TIME: 15:01 Assessment/Plan VTE Prophylaxis VTE Prophylaxis Intervention: SCD's Lines/Catheters IV [facility] Saline Lock Urinary Cath still in place: No Assessment/Plan Chief Complaint/Hosp Course Assessment and plan 1. Jaundice and pruritus. Patient also with Jaundice with associated pruritus. Patient did have abdominal ultrasound with evidence of lymphadenopathy in the region of the pancreatic head and epigastric region. There is also seen mild intrahepatic biliary duct dilation. There was seen moderate pericholecystic fluid and mild gallbladder wall thickening with no evidence of gallstones. Imaging suspect for neoplasm such as lymphoma. Public Health Analyst following. Oncology was consulted as well. s/p ERCP with stent. Continue with apron trimmer recommendations. Tentative plan renal biopsy 01/19/2017. We' ll follow-up 2. Transaminitis likely secondary to #1. Monitor LFT. 3. Leukocytosis. Likely reactive. Monitor for S&S of fever 4. Normocytic normochromic anemia. Monitor level. 5. Hyperbilirubinemia secondary to #1. Monitor level. 6.Peripheral smear with suspect Hodgkin's versus non-Hodgkin's lymphoma. Follow up on final biopsy. Continue with oncologist recommendations.. Tentative plan for renal biopsy Disposition and plan: Plan for renal biopsy on 01/19/2017. We'll follow-up with results. Continue in-house monitoring Discussed plan of care with Dr. Thompson Problems: Subjective 24 Hr Interval Summary Free Text/Dictation No signs or symptoms of distress. Exam/Review of Systems Vital Signs Vitals Vital Signs Date Time Temp Pulse Resp B/P Pulse Ox O2 Delivery O2 Flow Rate FiO2 01/18/17 07:56 97.7 105 18 130/78 95 01/14/17 19:30 Room Air 01/14/17 18:36 8.0 Intake and Output 01/17/17 01/17/17 01/18/17 14:59 22:59 06:59 Intake Total 600 ml 480 ml Output Total 800 ml 800 ml Balance -200 ml -320 ml Exam Constitutional: alert Psych: nl mood/affect Head: normocephalic Eyes: icteric Neck: supple, No jvd Respiratory: clear to auscultation, normal air movement Cardiovascular: regular rate and rhythm Gastrointestinal: soft, tender (minimal) Musculoskeletal: nl extremities to inspection Neurological: PRINTING PLATE CLERK II-XII intact, nl mental status, nl speech Skin: other (jaundice) Results Result Diagram: 01/18/1751101/18/17511 Results 24 hrs Laboratory Tests Test 01/18/17 05:12 White Blood Count 10.6 Red Blood Count 3.49 L Hemoglobin 10.0 L Hematocrit 28.7 L Mean Corpuscular Volume 82.2 Mean Corpuscular Hemoglobin 28.7 L Mean Corpuscular Hemoglobin Concent 34.8 Red Cell Distribution Width 14.4 Platelet Count 490 H Mean Platelet Volume 9.3 Neutrophils % 60.0 Lymphocytes % 8.0 L Monocytes % 2.0 Eosinophils % 26.0 H Basophils % 4.0 H Neutrophils # 6.4 Lymphocytes # 0.8 Monocytes # 0.2 L Eosinophils # 2.8 H Basophils # 0.4 H Platelet Estimate PLT APPEAR INCREASED Sodium Level 133 L Potassium Level 3.8 Chloride Level 101 Carbon Dioxide Level 25 Anion Gap 11 Blood Urea Nitrogen 21 H Creatinine 1.07 Glucose Level 161 Calcium Level 8.8 Medications Medications Current Medications Morphine Sulfate (morphine) 3 mg Q4H PRN IM PAIN; Start 01/13/17 at 22:00 Ondansetron HCl (Zofran Inj) 4 mg Q6H PRN IV NAUSEA AND/OR VOMITING; Start at 22:00 Hydroxyzine HCl (Atarax) 25 mg Q6H PRN NGT ITCHING Last administered on 12:38; Admin Dose 25 MG; Start 01/14/17 at 05:00 Zolpidem Tartrate (Ambien) 10 mg HS PRN PO INSOMNIA; Start 01/14/17 at 05:00 Acetaminophen (Tylenol Tab) 500 mg Q6H PRN PO PAIN AND OR ELEVATED TEMP Last administered on 01/15/17 23:38; Admin Dose 500 MG; Start 01/16/17 at 00:00 Diphenhydramine HCl (Benadryl) 50 mg Q6H PRN IV ITCHING Last administered on 09:44; Admin Dose 50 MG; Start 01/16/17 at 21:30 Loratadine (Claritin) 10 mg DAILY PRN PO ITCHING Last administered on 08:41; Admin Dose 10 MG; Start 01/18/17 at 08:30 PATRICIA ARIAS Jan 18, 2017 15:03
[2017-01-18 19:38] VITALS: BP 107/62; RESP 20
[2017-01-18] MEDS: DEXTROSE 5%-0.45% NACL 1,000 ML IV SCH (21:16)
[2017-01-19] VITALS (14 sets, daily range): BP systolic 107–139; BP diastolic 57–67; PULSE 86–106; RESP 14–20
[2017-01-19 06:17] LABS: ADD SCAN DIFF NO
[2017-01-19 06:29] LABS: ABNORMAL IP MESSAGE 1; BASOPHIL # 0.1 10^3/ul (0.0-0.1); BASOPHILS % 0.9 % (0.0-2.0); EOSINOPHILS # 2.3 10^3/ul (0.0-0.5); EOSINOPHILS % 21.1 % (0.0-7.0); HEMATOCRIT 28.1 % (42.0-52.0); HEMOGLOBIN 9.7 g/dl (14.0-18.0); LYMPHOCYTES # 1.3 10^3/ul (0.8-2.9); LYMPHOCYTES % 11.6 % (15.0-51.0); MEAN CORPUSCULAR HEMOGLOBIN 28.3 pg (29.0-33.0); MEAN CORPUSCULAR HGB CONC 34.5 g/dl (32.0-37.0); MEAN CORPUSCULAR VOLUME 81.9 fl (82.0-101.0); MONOCYTE # 0.5 10^3/ul (0.3-0.9); MONOCYTES % 4.7 % (0.0-11.0); NEUTROPHIL # 6.4 10^3/ul (1.6-7.5); NEUTROPHILS % 59.7 % (39.0-77.0); NUCLEATED RED BLOOD CELLS% 0.2 /100WBC (0.0-0.0); PLATELET COUNT 495 10^3/UL (140-415); RED BLOOD COUNT 3.43 10^6/ul (4.70-6.10); RED CELL DISTRIBUTION WIDTH 14.3 % (11.5-14.5); WHITE BLOOD COUNT 10.8 10^3/ul (4.8-10.8)
[2017-01-19] MEDS: DEXTROSE 5%-0.45% NACL 1,000 ML IV SCH (06:30)
[2017-01-19 06:40] LABS: INR 0.93; PROTIME 12.5 Sec (12.2-14.2)
[2017-01-19 06:41] LABS: PARTIAL THROMBOPLASTIN TIME 27.9 Sec (25.0-35.0)
[2017-01-19 06:45] LABS: POTASSIUM 4.1 mmol/L (3.5-5.1)
[2017-01-19 06:47] LABS: CREATININE 1.16 mg/dl (0.61-1.24)
[2017-01-19 06:48] LABS: CALCIUM 8.7 mg/dl (8.4-10.2)
[2017-01-19] MEDS ORDERED: LIDOCAINE 1% (MDV) 20 ML INJ ONE (09:04)
[2017-01-19] MEDS ORDERED: MIDAZOLAM 1 MG/ML 2 ML INJ ONE (09:05)
[2017-01-19] MEDS ORDERED: FENTAnyl 50 MCG/ML VIAL ONE (09:05)
[2017-01-19] MEDS ORDERED: SOD CHLORIDE 0.9% 500 ML ONE (09:05)
[2017-01-19] MEDS ORDERED: GELATIN 12MM X 7 MM SPONGE ONE (09:12)
--- NOTE | 2017-01-19 09:42 | CONS ---
DATE OF ADMISSION: 01/13/2017 DATE OF CONSULTATION: 01/19/2017 HISTORY OF PRESENT ILLNESS: The patient continues to complain of diffuse pruritus. He has had no f miranda or night sweats. No complaints of abdominal pain, no nausea or vomiting. OBJECTIVE: VITAL SIGNS: Temperature 97.4, pulse 72 per minute and regular, respirations 18, blood pressure 110 /65, pulse oximetry 96% on room air. SKIN: Some areas of excoriation. There are multiple tattoos present. No petechiae or ecchymoses. No rashes. HEENT: No mucosal lesions. 2+ scleral icterus. Pupils equal, round, react to light and accommodati on. Tongue is well papillated. There is no gingival hyperplasia, no hypertrophy of Waldeyer ring. NECK: Supple, no jugular venous distention or thyroid enlargement. CHEST: Clear to auscultation and percussion. No rhonchi, wheezes, rales or rubs. NODES: No palpable lymphadenopathy in lymph node bearing area. ABDOMEN: Soft, no masses, no ascites. EXTREMITIES: Good range of motion. No clubbing, no edema, or cyanosis. No palpable cords or Homans sign. NEUROLOGIC: Normal. IMPRESSION: 1. Obstructive jaundice not resolving with biliary stent. 2. Lymphadenopathy, infiltration of pancreas, and kidneys. Probable lymphoma. ASSESSMENT: The CT scan of the chest does demonstrate prominent lymph nodes mentioned in the bilater al axilla. Perhaps these would be easier to access than the kidneys. The CT scan of the chest also notes numerous prominent and enlarged lymph nodes throughout the upper abdomen, but in speaking to r adiologist previously, these were not felt to be easy to access. We will discuss possibility of axillary node biopsy rather than liver biopsy. Dictated By: ROSEMARY SANTIZO MD SR/NTS Conf#: [id number] DID#: [id number]
--- NOTE | 2017-01-19 12:03 | PN ---
DATE: 01/19/2017 TIME OF EVALUATION: 10:45 a.m. SUBJECTIVE DATA: Denies any abdominal pain. Complains of some pruritus. OBJECTIVE DATA: VITAL SIGNS: Temperature 97.4, pulse is 70, respiratory rate 18, blood pressure 109/64, oxygen saturation 96% on room air. GENERAL: This is a well-built, well-nourished male patient lying in bed in no apparent distress. HEENT: Head normocephalic and atraumatic. Eyes icteric sclerae. Conjunctivae clear. ENT: Nasal septum is midline. Oral mucosa is moist. NECK: Supple. No JVD noticed. RESPIRATORY: Bilaterally clear to auscultation. No adventitious breath sounds. No use of accessory muscles of respiration. CARDIAC: Regular rate and rhythm. No murmurs heard. ABDOMEN: Soft, nontender and nondistended. Bowel sounds positive in all 4 quadrants. GENITOURINARY: Deferred. EXTREMITIES: No cyanosis, no clubbing, no edema. Peripheral pulses palpable. NEUROLOGIC: The patient is awake, alert, and oriented. Cranial nerves are grossly intact. LABORATORY AND DIAGNOSTIC DATA: WBC 10.8, hemoglobin 9.7, hematocrit 28.1, platelet count 495. Sodium 136, potassium 4.1, chloride 100, carbon dioxide 28 , anion gap 12, BUN 7, creatinine 1.16, glucose 104, calcium 8.7. ASSESSMENT AND PLAN: 1. Painless jaundice. Etiology could be multifactorial. The patient's abdominal imaging showed numerous hypovascular lesions in bilateral kidneys, radiographically consistent with renal lymphoma along with mild intrahepatic bile duct dilatation. The patient underwent an ERCP on 01/08/2017 that showed a small narrowing of the distal common bile duct, suggesting extrinsic compression. The patient is status post sphincterotomy and placement of a stent. The patient being followed by gastroenterology. 2. Possible underlying malignant process with underlying lymphadenopathy, infiltration of the pancreas and kidneys. The patient is status post renal biopsy today. The patient is being followed by oncology. 3. Transaminitis and hyperbilirubinemia, most probably secondary to underlying biliary tree obstruction. Continue to monitor the patient. Avoid hepatotoxic medications. 4. Microcytic hypochromic anemia. The patient's iron panel showing low iron saturation. We will monitor the H and H closely. We will transfuse blood products as needed. 5. Fluid, electrolytes, nutrition. Regular diet as tolerated. 6. Deep venous thrombosis prophylaxis. Bilateral sequential compression devices. 7. Gastrointestinal prophylaxis. Histamine-2 receptor blockers. PLAN 1. Await pathology findings. 2. Await further recommendations from consultants. The case was discussed with Dr. Gilbert. ALISSA GILBERT MD, AM/ERIC Conf#: [id number] DID#: [id number] MTDD
--- NOTE | 2017-01-19 13:43 | RADRPT ---
PROCEDURE: CT guided left renal biopsy. 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 TECHNIQUE: Informed consent was obtained. The procedure, risks, benefits, complications and alternatives were explained to the patient. Risks including bleeding and infection were explained. The patient unders tood and was willing to proceed. A procedural pause was performed. The patient's name, date of evelyn h, and procedure to be performed were verified. One or more of the following dose reduction techni ques were used: Automated exposure control, adjustment of the mA and/or kV according to patient size , use of iterative reconstruction technique. Using local anesthetic, sterile technique and CT guidance, an 18-gauge automated core biopsy needle was used to biopsy the lower pole of the left kidney. Multiple passes were made. Adequate tissue w as obtained according to the pathologist present during the procedure. Multiple Gelfoam pledgets mi xed with normal saline were then embolized through the outer cannula of the biopsy needle into the b iopsy tract while the needle was removed. A postprocedural scan was performed. A dressing was applied. The patient tolerated procedure well. COMPARISON: None. FINDINGS: Initial images demonstrate the tip of the needle at the posterior margin of the lower pole of the le ft kidney. Post biopsy images demonstrate no immediate complication. The Gelfoam is noted in the biopsy tract. IMPRESSION: 1. Successful CT guided biopsy of the left kidney. RPTAT: QQ .Amor Roberto MD, Date Time Electronically viewed and signed by .Amor Roberto MD, on 01/19/2017 12:01 .R/
--- NOTE | 2017-01-19 14:46 | PN ---
Date/Time of Note Date/Time of Note DATE: 01/19/17 TIME: 14:43 Assessment/Plan VTE Prophylaxis VTE Prophylaxis Intervention: SCD's Lines/Catheters IV [facility] Type (from [facility]): Saline Lock Urinary Cath still in place: No Assessment/Plan Chief Complaint/Hosp Course . Problems: Assessment/Plan Jaundice * Extrahepatic * Lymphadenopathy * consider Lymphoma,non Hodgkin(?) * ERCP /ERS/Stent placement 01/14/2017 Plan * continue present management * Monitor liver profile Subjective 24 Hr Interval Summary Free Text/Dictation * Course reviewed with RN * Patient seen and examined * Still having episodes of pruritus * no abdominal pain Exam/Review of Systems Vital Signs Vitals Vital Signs Date Time Temp Pulse Resp B/P Pulse Ox O2 Delivery O2 Flow Rate FiO2 01/19/17 11:01 97.7 89 20 108/64 01/19/17 10:10 97 Room Air 01/19/17 10:05 2.0 Intake and Output 01/18/17 01/18/17 01/19/17 15:00 23:00 07:00 Intake Total 2500 ml 1750 ml Output Total 2425 ml 1200 ml Balance 75 ml 550 ml Exam Constitutional: alert, oriented Neck: non-tender, supple Respiratory: clear to auscultation, diminished breath sounds, normal air movement Cardiovascular: nl pulses, regular rate and rhythm Gastrointestinal: bowel sounds, non-tender, soft Musculoskeletal: nl extremities to inspection, nl gait and stance Extremities: normal pulses Neurological: nl speech, nl strength Skin: nl turgor, rash or lesions Results Result Diagram: 01/19/17 0602 01/19/17 0602 Results 24 hrs Laboratory Tests Test 01/19/17 06:02 White Blood Count 10.8 Red Blood Count 3.43 L Hemoglobin 9.7 L Hematocrit 28.1 L Mean Corpuscular Volume 81.9 L Mean Corpuscular Hemoglobin 28.3 L Mean Corpuscular Hemoglobin Concent 34.5 Red Cell Distribution Width 14.3 Platelet Count 495 H Mean Platelet Volume 9.0 Neutrophils % 59.7 Lymphocytes % 11.6 L Monocytes % 4.7 Eosinophils % 21.1 H Basophils % 0.9 Nucleated Red Blood Cells % 0.2 H Neutrophils # 6.4 Lymphocytes # 1.3 Monocytes # 0.5 Eosinophils # 2.3 H Basophils # 0.1 Nucleated Red Blood Cells # 0.0 Prothrombin Time 12.5 Prothrombin Time Ratio 1.0 INR International Normalized Ratio 0.93 Activated Partial Thromboplast Time 27.9 Sodium Level 136 Potassium Level 4.1 Chloride Level 100 Carbon Dioxide Level 28 Anion Gap 12 Blood Urea Nitrogen 17 Creatinine 1.16 Glucose Level 104 # Calcium Level 8.7 Medications Medications Current Medications Morphine Sulfate (morphine) 3 mg Q4H PRN IM PAIN; Start 01/13/17 at 22:00 Ondansetron HCl (Zofran Inj) 4 mg Q6H PRN IV NAUSEA AND/OR VOMITING; Start at 22:00 Hydroxyzine HCl (Atarax) 25 mg Q6H PRN NGT ITCHING Last administered on 12:38; Admin Dose 25 MG; Start 01/14/17 at 05:00 Zolpidem Tartrate (Ambien) 10 mg HS PRN PO INSOMNIA; Start 01/14/17 at 05:00 Acetaminophen (Tylenol Tab) 500 mg Q6H PRN PO PAIN AND OR ELEVATED TEMP Last administered on 01/15/17 23:38; Admin Dose 500 MG; Start 01/16/17 at 00:00 Diphenhydramine HCl (Benadryl) 50 mg Q6H PRN IV ITCHING Last administered on 09:44; Admin Dose 50 MG; Start 01/16/17 at 21:30 Loratadine (Claritin) 10 mg DAILY PRN PO ITCHING Last administered on 08:41; Admin Dose 10 MG; Start 01/18/17 at 08:30 Famotidine (Pepcid) 20 mg BID PO ; Start 01/19/17 at 21:00 NARESH COON MD January 19, 2017 14:46
[2017-01-19] MEDS: FAMOTIDINE 20 MG TAB PO SCH (21:26)
[2017-01-19] MEDS: ACETAMINOPHEN 500 MG TAB PO PRN (22:56)
[2017-01-20 01:00] VITALS: PULSE 89
[2017-01-20 04:00] VITALS: PULSE 83
[2017-01-20 06:15] LABS: ADD SCAN DIFF NO
[2017-01-20 06:26] LABS: BASOPHIL # 0.1 10^3/ul (0.0-0.1); BASOPHILS % 0.8 % (0.0-2.0); EOSINOPHILS # 1.9 10^3/ul (0.0-0.5); EOSINOPHILS % 20.4 % (0.0-7.0); HEMATOCRIT 28.4 % (42.0-52.0); HEMOGLOBIN 9.7 g/dl (14.0-18.0); LYMPHOCYTES # 1.4 10^3/ul (0.8-2.9); LYMPHOCYTES % 14.4 % (15.0-51.0); MEAN CORPUSCULAR HEMOGLOBIN 28.4 pg (29.0-33.0); MEAN CORPUSCULAR HGB CONC 34.2 g/dl (32.0-37.0); MONOCYTE # 0.5 10^3/ul (0.3-0.9); MONOCYTES % 5.6 % (0.0-11.0); NEUTROPHIL # 5.4 10^3/ul (1.6-7.5); NEUTROPHILS % 56.9 % (39.0-77.0); NUCLEATED RED BLOOD CELLS% 0.2 /100WBC (0.0-0.0); PLATELET COUNT 477 10^3/UL (140-415); RED BLOOD COUNT 3.42 10^6/ul (4.70-6.10); RED CELL DISTRIBUTION WIDTH 14.4 % (11.5-14.5); WHITE BLOOD COUNT 9.5 10^3/ul (4.8-10.8)
[2017-01-20 06:37] LABS: ALBUMIN 3.2 g/dl (3.3-4.9); ALBUMIN/GLOBULIN RATIO 0.65; BILIRUBIN,DIRECT 6.6 mg/dl (0.00-0.20); BILIRUBIN,INDIRECT 1.5 mg/dl (0-1.1); BILIRUBIN,TOTAL 8.1 mg/dl (0.2-1.3); CALCIUM 8.9 mg/dl (8.4-10.2); CREATININE 1.09 mg/dl (0.61-1.24); POTASSIUM 4.4 mmol/L (3.5-5.1); TOTAL PROTEIN 8.1 g/dl (6.1-8.1)
[2017-01-20 06:40] LABS: CHOL/HDL RATIO 10.4 RATIO
[2017-01-20 07:08] LABS: THYROID STIMULATING HORMONE 3.98 MIU/L (0.465-4.680)
[2017-01-20 08:01] VITALS: BP 114/67; RESP 18
[2017-01-20] MEDS: FAMOTIDINE 20 MG TAB PO SCH ×2 (08:28→20:47)
[2017-01-20] MEDS: DIPHENHYDRAMINE 50 MG INJ IV PRN ×2 (08:30→23:07)
[2017-01-20 09:43] LABS: MAGNESIUM 2.2 mg/dl (1.7-2.5); PHOSPHORUS 5.5 mg/dl (2.5-4.9)
--- NOTE | 2017-01-20 13:27 | PN ---
Date/Time of Note Date/Time of Note DATE: 01/20/17 TIME: 13:25 Assessment/Plan VTE Prophylaxis VTE Prophylaxis Intervention: ambulation Lines/Catheters IV [facility]from [facility] Saline Lock Urinary Cath still in place: No Assessment/Plan Assessment/Plan Pt tolerated kidney biopsy well. Path is pending. We will f/u tomorrow on that. Tissue diagnosis is still not available although lymphoma is suspected. Subjective 24 Hr Interval Summary Free Text/Dictation Pt is alert and comfortable. Exam/Review of Systems Vital Signs Vitals Vital Signs Date Time Temp Pulse Resp B/P Pulse Ox O2 Delivery O2 Flow Rate FiO2 01/20/17 08:01 97.9 98 18 114/67 96 01/19/17 10:10 Room Air 01/19/17 10:05 2.0 Intake and Output 01/19/17 01/19/17 01/20/17 14:59 22:59 06:59 Intake Total 950 ml 1020 ml 1180 ml Output Total 1700 ml 1550 ml Balance 950 ml -680 ml -370 ml Exam Constitutional: alert, oriented Psych: no complaints Head: normocephalic Neck: supple Respiratory: clear to auscultation Cardiovascular: regular rate and rhythm Gastrointestinal: non-tender, soft Results Result Diagram: 01/20/17 0545 01/20/17 0545 Results 24 hrs Laboratory Tests Test 01/20/17 05:45 White Blood Count 9.5 Red Blood Count 3.42 L Hemoglobin 9.7 L Hematocrit 28.4 L Mean Corpuscular Volume 83.0 Mean Corpuscular Hemoglobin 28.4 L Mean Corpuscular Hemoglobin Concent 34.2 Red Cell Distribution Width 14.4 Platelet Count 477 H Mean Platelet Volume 9.0 Neutrophils % 56.9 Lymphocytes % 14.4 L Monocytes % 5.6 Eosinophils % 20.4 H Basophils % 0.8 Nucleated Red Blood Cells % 0.2 H Neutrophils # 5.4 Lymphocytes # 1.4 Monocytes # 0.5 Eosinophils # 1.9 H Basophils # 0.1 Nucleated Red Blood Cells # 0.0 Sodium Level 135 Potassium Level 4.4 Chloride Level 100 Carbon Dioxide Level 29 Anion Gap 10 Blood Urea Nitrogen 19 Creatinine 1.09 Glucose Level 96 Hemoglobin A1c 6.2 H Calcium Level 8.9 Phosphorus Level 5.5 H Magnesium Level 2.2 Total Bilirubin 8.1 H Direct Bilirubin 6.60 H Indirect Bilirubin 1.5 H Aspartate Amino Transf (AST/SGOT) 50 H Alanine Aminotransferase (ALT/SGPT) 71 H Alkaline Phosphatase 522 H Total Protein 8.1 Albumin 3.2 L Globulin 4.90 H Albumin/Globulin Ratio 0.65 Triglycerides Level 510 H Cholesterol Level 260 H LDL Cholesterol, Calculated 133 HDL Cholesterol 25 L Cholesterol/HDL Ratio 10.4 Thyroid Stimulating Hormone (TSH) 3.980 Free Thyroxine 1.21 Medications Medications Current Medications Morphine Sulfate (morphine) 3 mg Q4H PRN IM PAIN; Start 01/13/17 at 22:00 Ondansetron HCl (Zofran Inj) 4 mg Q6H PRN IV NAUSEA AND/OR VOMITING; Start at 22:00 Hydroxyzine HCl (Atarax) 25 mg Q6H PRN NGT ITCHING Last administered on 12:38; Admin Dose 25 MG; Start 01/14/17 at 05:00 Zolpidem Tartrate (Ambien) 10 mg HS PRN PO INSOMNIA; Start 01/14/17 at 05:00 Acetaminophen (Tylenol Tab) 500 mg Q6H PRN PO PAIN AND OR ELEVATED TEMP Last administered on 01/19/17 22:56; Admin Dose 500 MG; Start 01/16/17 at 00:00 Diphenhydramine HCl (Benadryl) 50 mg Q6H PRN IV ITCHING Last administered on 08:30; Admin Dose 50 MG; Start 01/16/17 at 21:30 Loratadine (Claritin) 10 mg DAILY PRN PO ITCHING Last administered on 08:41; Admin Dose 10 MG; Start 01/18/17 at 08:30 Famotidine (Pepcid) 20 mg BID PO Last administered on 01/20/17 08:28; Admin Dose 20 MG; Start 01/19/17 at 21:00 RIMA ALCOCER MD January 20, 2017 13:27
--- NOTE | 2017-01-20 15:21 | PN ---
Date/Time of Note Date/Time of Note DATE: 01/20/17 TIME: 15:17 Assessment/Plan VTE Prophylaxis VTE Prophylaxis Intervention: ambulation Lines/Catheters [facility]from [facility] Saline Lock Urinary Cath still in place: No Assessment/Plan Chief Complaint/Hosp Course . Problems: Assessment/Plan Jaundice * Extrahepatic * Lymphadenopathy * consider Lymphoma,non Hodgkin(?) * ERCP /ERS/Stent placement 01/14/2017 Plan * continue present management * Monitor liver profile * awaiting biopsy results Subjective 24 Hr Interval Summary Free Text/Dictation * Patient seen and examined * Course reviewed with RN * episodes of pruritus * Total bilirubin 8.1 from 5.8 yesterday Exam/Review of Systems Vital Signs Vitals Vital Signs Date Time Temp Pulse Resp B/P Pulse Ox O2 Delivery O2 Flow Rate FiO2 01/20/17 08:01 97.9 98 18 114/67 96 01/19/17 10:10 Room Air 01/19/17 10:05 2.0 Intake and Output 01/19/17 01/19/17 01/20/17 15:00 23:00 07:00 Intake Total 750 ml 1020 ml 1180 ml Output Total 1700 ml 1550 ml Balance 750 ml -680 ml -370 ml Exam Constitutional: alert, oriented Eyes: icteric Neck: non-tender, supple Respiratory: clear to auscultation, normal air movement Cardiovascular: nl pulses, regular rate and rhythm Gastrointestinal: nl liver, spleen, non-tender, soft Musculoskeletal: nl extremities to inspection, nl gait and stance Extremities: normal pulses Neurological: nl mental status, nl speech Lymph: enlarged Results Result Diagram: 01/20/17 0545 01/20/17 0545 Results 24 hrs Laboratory Tests Test 01/20/17 05:45 White Blood Count 9.5 Red Blood Count 3.42 L Hemoglobin 9.7 L Hematocrit 28.4 L Mean Corpuscular Volume 83.0 Mean Corpuscular Hemoglobin 28.4 L Mean Corpuscular Hemoglobin Concent 34.2 Red Cell Distribution Width 14.4 Platelet Count 477 H Mean Platelet Volume 9.0 Neutrophils % 56.9 Lymphocytes % 14.4 L Monocytes % 5.6 Eosinophils % 20.4 H Basophils % 0.8 Nucleated Red Blood Cells % 0.2 H Neutrophils # 5.4 Lymphocytes # 1.4 Monocytes # 0.5 Eosinophils # 1.9 H Basophils # 0.1 Nucleated Red Blood Cells # 0.0 Sodium Level 135 Potassium Level 4.4 Chloride Level 100 Carbon Dioxide Level 29 Anion Gap 10 Blood Urea Nitrogen 19 Creatinine 1.09 Glucose Level 96 Hemoglobin A1c 6.2 H Calcium Level 8.9 Phosphorus Level 5.5 H Magnesium Level 2.2 Total Bilirubin 8.1 H Direct Bilirubin 6.60 H Indirect Bilirubin 1.5 H Aspartate Amino Transf (AST/SGOT) 50 H Alanine Aminotransferase (ALT/SGPT) 71 H Alkaline Phosphatase 522 H Total Protein 8.1 Albumin 3.2 L Globulin 4.90 H Albumin/Globulin Ratio 0.65 Triglycerides Level 510 H Cholesterol Level 260 H LDL Cholesterol, Calculated 133 HDL Cholesterol 25 L Cholesterol/HDL Ratio 10.4 Thyroid Stimulating Hormone (TSH) 3.980 Free Thyroxine 1.21 Medications Medications Current Medications Morphine Sulfate (morphine) 3 mg Q4H PRN IM PAIN; Start 01/13/17 at 22:00 Ondansetron HCl (Zofran Inj) 4 mg Q6H PRN IV NAUSEA AND/OR VOMITING; Start at 22:00 Hydroxyzine HCl (Atarax) 25 mg Q6H PRN NGT ITCHING Last administered on 12:38; Admin Dose 25 MG; Start 01/14/17 at 05:00 Zolpidem Tartrate (Ambien) 10 mg HS PRN PO INSOMNIA; Start 01/14/17 at 05:00 Acetaminophen (Tylenol Tab) 500 mg Q6H PRN PO PAIN AND OR ELEVATED TEMP Last administered on 01/19/17 22:56; Admin Dose 500 MG; Start 01/16/17 at 00:00 Diphenhydramine HCl (Benadryl) 50 mg Q6H PRN IV ITCHING Last administered on 08:30; Admin Dose 50 MG; Start 01/16/17 at 21:30 Loratadine (Claritin) 10 mg DAILY PRN PO ITCHING Last administered on 08:41; Admin Dose 10 MG; Start 01/18/17 at 08:30 Famotidine (Pepcid) 20 mg BID PO Last administered on 01/20/17 08:28; Admin Dose 20 MG; Start 01/19/17 at 21:00 NARESH COON MD January 20, 2017 15:21
--- NOTE | 2017-01-20 15:33 | PN ---
Date/Time of Note Date/Time of Note DATE: 01/20/17 TIME: 15:33 Assessment/Plan VTE Prophylaxis VTE Prophylaxis Intervention: SCD's Lines/Catheters IV [facility] Type [facility]from [facility] Saline Lock Urinary Cath still in place: No Assessment/Plan Chief Complaint/Hosp Course 1. Painless jaundice. Etiology could be multifactorial. The patient's abdominal imaging showed numerous hypovascular lesions in bilateral kidneys, radiographically consistent with renal lymphoma along with mild intrahepatic bile duct dilatation. The patient underwent an ERCP on 01/08/2017 that showed a small narrowing of the distal common bile duct, suggesting extrinsic compression. The patient is status post sphincterotomy and placement of a stent. The patient being followed by gastroenterology. 2. Possible underlying malignant process with underlying lymphadenopathy, infiltration of the pancreas and kidneys. The patient is status post renal biopsy on 01/19/2017. The patient is being followed by oncology. 3. Transaminitis and hyperbilirubinemia, most probably secondary to underlying biliary tree obstruction. Continue to monitor the patient. Avoid hepatotoxic medications. 4. Microcytic hypochromic anemia. The patient's iron panel showing low iron saturation. We will monitor the H and H closely. We will transfuse blood products as needed. 5. Dyslipidemia. We will reinforce a low-cholesterol diet. 6. Prediabetes. We will reinforce a low carbohydrate diet. Dietary consult will be obtained. 7. Fluid, electrolytes, nutrition. Low-cholesterol diet as tolerated. 8. Deep venous thrombosis prophylaxis. Bilateral sequential compression devices. 9. Gastrointestinal prophylaxis. Histamine-2 receptor blockers. PLAN 1. Await pathology findings. 2. Await further recommendations from consultants. The case was discussed with Dr. Reid. Problems: Subjective 24 Hr Interval Summary Free Text/Dictation Denies any abdominal pain. Complains of itching. Exam/Review of Systems Vital Signs Vitals Vital Signs Date Time Temp Pulse Resp B/P Pulse Ox O2 Delivery O2 Flow Rate FiO2 01/20/17 08:01 97.9 98 18 114/67 96 01/19/17 10:10 Room Air 01/19/17 10:05 2.0 Intake and Output 01/19/17 01/19/17 01/20/17 15:00 23:00 07:00 Intake Total 750 ml 1020 ml 1180 ml Output Total 1700 ml 1550 ml Balance 750 ml -680 ml -370 ml Exam GENERAL: This is a well-built, well-nourished male patient lying in bed in no apparent distress. HEENT: Head normocephalic and atraumatic. Eyes icteric sclerae. Conjunctivae clear. ENT: Nasal septum is midline. Oral mucosa is moist. NECK: Supple. No JVD noticed. RESPIRATORY: Bilaterally clear to auscultation. No adventitious breath sounds. No use of accessory muscles of respiration. CARDIAC: Regular rate and rhythm. No murmurs heard. ABDOMEN: Soft, nontender and nondistended. Bowel sounds positive in all 4 quadrants. GENITOURINARY: Deferred. EXTREMITIES: No cyanosis, no clubbing, no edema. Peripheral pulses palpable. NEUROLOGIC: The patient is awake, alert, and oriented. Cranial nerves are grossly intact. Results Result Diagram: 01/20/17 0545 01/20/17 0545 Results 24 hrs Laboratory Tests Test 01/20/17 05:45 White Blood Count 9.5 Red Blood Count 3.42 L Hemoglobin 9.7 L Hematocrit 28.4 L Mean Corpuscular Volume 83.0 Mean Corpuscular Hemoglobin 28.4 L Mean Corpuscular Hemoglobin Concent 34.2 Red Cell Distribution Width 14.4 Platelet Count 477 H Mean Platelet Volume 9.0 Neutrophils % 56.9 Lymphocytes % 14.4 L Monocytes % 5.6 Eosinophils % 20.4 H Basophils % 0.8 Nucleated Red Blood Cells % 0.2 H Neutrophils # 5.4 Lymphocytes # 1.4 Monocytes # 0.5 Eosinophils # 1.9 H Basophils # 0.1 Nucleated Red Blood Cells # 0.0 Sodium Level 135 Potassium Level 4.4 Chloride Level 100 Carbon Dioxide Level 29 Anion Gap 10 Blood Urea Nitrogen 19 Creatinine 1.09 Glucose Level 96 Hemoglobin A1c 6.2 H Calcium Level 8.9 Phosphorus Level 5.5 H Magnesium Level 2.2 Total Bilirubin 8.1 H Direct Bilirubin 6.60 H Indirect Bilirubin 1.5 H Aspartate Amino Transf (AST/SGOT) 50 H Alanine Aminotransferase (ALT/SGPT) 71 H Alkaline Phosphatase 522 H Total Protein 8.1 Albumin 3.2 L Globulin 4.90 H Albumin/Globulin Ratio 0.65 Triglycerides Level 510 H Cholesterol Level 260 H LDL Cholesterol, Calculated 133 HDL Cholesterol 25 L Cholesterol/HDL Ratio 10.4 Thyroid Stimulating Hormone (TSH) 3.980 Free Thyroxine 1.21 Medications Medications Current Medications Morphine Sulfate (morphine) 3 mg Q4H PRN IM PAIN; Start 01/13/17 at 22:00 Ondansetron HCl (Zofran Inj) 4 mg Q6H PRN IV NAUSEA AND/OR VOMITING; Start at 22:00 Hydroxyzine HCl (Atarax) 25 mg Q6H PRN NGT ITCHING Last administered on 12:38; Admin Dose 25 MG; Start 01/14/17 at 05:00 Zolpidem Tartrate (Ambien) 10 mg HS PRN PO INSOMNIA; Start 01/14/17 at 05:00 Acetaminophen (Tylenol Tab) 500 mg Q6H PRN PO PAIN AND OR ELEVATED TEMP Last administered on 01/19/17 22:56; Admin Dose 500 MG; Start 01/16/17 at 00:00 Diphenhydramine HCl (Benadryl) 50 mg Q6H PRN IV ITCHING Last administered on 08:30; Admin Dose 50 MG; Start 01/16/17 at 21:30 Loratadine (Claritin) 10 mg DAILY PRN PO ITCHING Last administered on 08:41; Admin Dose 10 MG; Start 01/18/17 at 08:30 Famotidine (Pepcid) 20 mg BID PO Last administered on 01/20/17 08:28; Admin Dose 20 MG; Start 01/19/17 at 21:00 ALISSA JAFFE NP January 20, 2017 15:33
[2017-01-20 19:59] VITALS: BP 108/61; RESP 18
[2017-01-21 05:43] LABS: ADD SCAN DIFF NO
[2017-01-21 06:19] LABS: BASOPHIL # 0.1 10^3/ul (0.0-0.1); BASOPHILS % 0.7 % (0.0-2.0); EOSINOPHILS % 19.9 % (0.0-7.0); HEMATOCRIT 27.2 % (42.0-52.0); HEMOGLOBIN 9.5 g/dl (14.0-18.0); LYMPHOCYTES # 1.4 10^3/ul (0.8-2.9); LYMPHOCYTES % 14.1 % (15.0-51.0); MEAN CORPUSCULAR HEMOGLOBIN 28.4 pg (29.0-33.0); MEAN CORPUSCULAR HGB CONC 34.9 g/dl (32.0-37.0); MEAN CORPUSCULAR VOLUME 81.2 fl (82.0-101.0); MONOCYTE # 0.5 10^3/ul (0.3-0.9); NEUTROPHIL # 5.9 10^3/ul (1.6-7.5); NEUTROPHILS % 58.4 % (39.0-77.0); NUCLEATED RED BLOOD CELLS% 0.2 /100WBC (0.0-0.0); PLATELET COUNT 476 10^3/UL (140-415); RED BLOOD COUNT 3.35 10^6/ul (4.70-6.10); RED CELL DISTRIBUTION WIDTH 14.3 % (11.5-14.5)
[2017-01-21 06:23] LABS: PHOSPHORUS 5.4 mg/dl (2.5-4.9)
[2017-01-21 06:26] LABS: ALBUMIN 3.1 g/dl (3.3-4.9); ALBUMIN/GLOBULIN RATIO 0.63; BILIRUBIN,DIRECT 6.9 mg/dl (0.00-0.20); BILIRUBIN,INDIRECT 1.6 mg/dl (0-1.1); BILIRUBIN,TOTAL 8.5 mg/dl (0.2-1.3); CALCIUM 8.8 mg/dl (8.4-10.2); CREATININE 1.11 mg/dl (0.61-1.24); POTASSIUM 4.2 mmol/L (3.5-5.1)
[2017-01-21 07:26] VITALS: BP 103/57; RESP 14
[2017-01-21] MEDS: FAMOTIDINE 20 MG TAB PO SCH ×2 (08:39→20:20)
--- NOTE | 2017-01-21 09:02 | CONS ---
DATE OF ADMISSION: 01/13/2017 DATE OF CONSULTATION: 01/21/2017 TYPE OF CONSULTATION: Hematology/oncology progress note. The patient's main complaint continues to be pruritus. He has had no complaints of shaking chills. H e has no abdominal pain. No nausea or vomiting. The patient did have the renal biopsy performed without any complications. OBJECTIVE: VITAL SIGNS: Temperature 99.3, pulse 86, respirations 14, blood pressure 103/57. Pulse oximetry 95 %. SKIN: No ecchymosis, no petechiae or rashes. There are tattoos present. HEENT: Normocephalic. No evidence of trauma. There is 2 to 3+ scleral icterus. No mucosal lesion s. No hypertrophy of Waldeyer ring. NECK: Supple, no jugular venous distention or thyroid enlargement. CHEST: Clear to auscultation and percussion. No rhonchi, wheezes, rales or rubs. NODES: No palpable lymphadenopathy in any lymph node bearing area except some nodes palpable high i n the apex of the left axilla. HEART: Regular sinus rhythm, no S3, S4 or murmurs. No rubs. ABDOMEN: Soft, no masses, no ascites. EXTREMITIES: Good range of motion, no clubbing, edema or cyanosis. No palpable cords or Homans sig n. NEUROLOGIC: Normal. LABORATORY DATA: White count today is 10,000. This includes 19.9% eosinophils. Hemoglobin 9.5, he matocrit 27.2 and platelet count 426,000. Sodium 133, potassium 4.2, creatinine 1.11. BUN 19, tota l bilirubin now 8.5, direct of 6.9, AST 47, ALT 68, alkaline phosphatase 512. HIV antibodies negative. As previously noted, the serum immunofixation does demonstrate a faint monoclonal free lambda light chain. There was also an IgG kappa monoclonal immunoglobulin s een. The renal biopsy unfortunately is not diagnostic for any specific malignancy. It is being sent for outside referral. ASSESSMENT: 1. Obstructive jaundice. 2. Lymphadenopathy and infiltration of kidneys and pancreas. PLAN: Although the renal biopsy is not diagnostic, I feel that the findings are somewhat suggestive of Hodgkin's lymphoma. As noted, the biopsy has been sent from outside opinion. Bilirubin continues to rise. Will recheck an ultrasound of the liver. We will also obtain free kappa and lambda light chains. Dictated By: ROSEMARY SANTIZO MD, SR/NTS Conf#: [id number] DID#: [id number]
--- NOTE | 2017-01-21 10:47 | PN ---
Date/Time of Note Date/Time of Note DATE: 01/21/17 TIME: 10:47 Assessment/Plan VTE Prophylaxis VTE Prophylaxis Intervention: SCD's Lines/Catheters IV Catheter Type (from [facility]): Saline Lock Urinary Cath still in place: No Assessment/Plan Chief Complaint/Hosp Course 1. Painless jaundice. Etiology could be multifactorial. The patient's abdominal imaging showed numerous hypovascular lesions in bilateral kidneys, radiographically consistent with renal lymphoma along with mild intrahepatic bile duct dilatation. The patient underwent an ERCP on 01/08/2017 that showed a small narrowing of the distal common bile duct, suggesting extrinsic compression. The patient is status post sphincterotomy and placement of a stent. The patient being followed by gastroenterology. 2. Possible underlying malignant process with underlying lymphadenopathy, infiltration of the pancreas and kidneys. The patient is status post renal biopsy on 01/19/2017. The patient is being followed by oncology. 3. Transaminitis and hyperbilirubinemia, most probably secondary to underlying biliary tree obstruction. Continue to monitor the patient. Avoid hepatotoxic medications. 4. Microcytic hypochromic anemia. The patient's iron panel showing low iron saturation. We will monitor the H and H closely. We will transfuse blood products as needed. 5. Dyslipidemia. We will reinforce a low-cholesterol diet. 6. Prediabetes. We will reinforce a low carbohydrate diet. Dietary consult obtained. 7. Fluid, electrolytes, nutrition. Low-cholesterol diet as tolerated. 8. Deep venous thrombosis prophylaxis. Bilateral sequential compression devices. 9. Gastrointestinal prophylaxis. Histamine-2 receptor blockers. PLAN: The patient has worsening bilirubinemia. Ultrasound of the abdomen ordered. Await further recommendations from consultants. The case was discussed with Dr. Reid. Problems: Subjective 24 Hr Interval Summary Free Text/Dictation Had a low-grade fever last night. Exam/Review of Systems Vital Signs Vitals Vital Signs Date Time Temp Pulse Resp B/P Pulse Ox O2 Delivery O2 Flow Rate FiO2 01/21/17 07:26 99.3 86 14 103/57 95 01/19/17 10:10 Room Air 01/19/17 10:05 2.0 Intake and Output 01/20/17 01/20/17 01/21/17 15:00 23:00 07:00 Intake Total 840 ml 2000 ml Output Total 950 ml 3000 ml Balance -110 ml -1000 ml Exam GENERAL: This is a well-built, well-nourished male patient lying in bed in no apparent distress. HEENT: Head normocephalic and atraumatic. Eyes icteric sclerae. Conjunctivae clear. ENT: Nasal septum is midline. Oral mucosa is moist. NECK: Supple. No JVD noticed. RESPIRATORY: Bilaterally clear to auscultation. No adventitious breath sounds. No use of accessory muscles of respiration. CARDIAC: Regular rate and rhythm. No murmurs heard. ABDOMEN: Soft, nontender and nondistended. Bowel sounds positive in all 4 quadrants. GENITOURINARY: Deferred. EXTREMITIES: No cyanosis, no clubbing, no edema. Peripheral pulses palpable. NEUROLOGIC: The patient is awake, alert, and oriented. Cranial nerves are grossly intact. Results Result Diagram: 01/21/17 0525 01/21/17 0525 Results 24 hrs Laboratory Tests Test 01/21/17 05:25 White Blood Count 10.0 Red Blood Count 3.35 L Hemoglobin 9.5 L Hematocrit 27.2 L Mean Corpuscular Volume 81.2 L Mean Corpuscular Hemoglobin 28.4 L Mean Corpuscular Hemoglobin Concent 34.9 Red Cell Distribution Width 14.3 Platelet Count 476 H Mean Platelet Volume 9.0 Neutrophils % 58.4 Lymphocytes % 14.1 L Monocytes % 5.0 Eosinophils % 19.9 H Basophils % 0.7 Nucleated Red Blood Cells % 0.2 H Neutrophils # 5.9 Lymphocytes # 1.4 Monocytes # 0.5 Eosinophils # 2.0 H Basophils # 0.1 Nucleated Red Blood Cells # 0.0 Sodium Level 133 L Potassium Level 4.2 Chloride Level 101 Carbon Dioxide Level 27 Anion Gap 9 Blood Urea Nitrogen 19 Creatinine 1.11 Glucose Level 94 Calcium Level 8.8 Phosphorus Level 5.4 H Magnesium Level 2.0 Total Bilirubin 8.5 H Direct Bilirubin 6.90 H Indirect Bilirubin 1.6 H Aspartate Amino Transf (AST/SGOT) 47 H Alanine Aminotransferase (ALT/SGPT) 68 Alkaline Phosphatase 512 H Total Protein 8.0 Albumin 3.1 L Globulin 4.90 H Albumin/Globulin Ratio 0.63 Medications Medications Current Medications Morphine Sulfate (morphine) 3 mg Q4H PRN IM PAIN; Start 01/13/17 at 22:00 Ondansetron HCl (Zofran Inj) 4 mg Q6H PRN IV NAUSEA AND/OR VOMITING; Start at 22:00 Hydroxyzine HCl (Atarax) 25 mg Q6H PRN NGT ITCHING Last administered on 12:38; Admin Dose 25 MG; Start 01/14/17 at 05:00 Zolpidem Tartrate (Ambien) 10 mg HS PRN PO INSOMNIA; Start 01/14/17 at 05:00 Acetaminophen (Tylenol Tab) 500 mg Q6H PRN PO PAIN AND OR ELEVATED TEMP Last administered on 01/19/17 22:56; Admin Dose 500 MG; Start 01/16/17 at 00:00 Diphenhydramine HCl (Benadryl) 50 mg Q6H PRN IV ITCHING Last administered on 23:07; Admin Dose 50 MG; Start 01/16/17 at 21:30 Loratadine (Claritin) 10 mg DAILY PRN PO ITCHING Last administered on 08:41; Admin Dose 10 MG; Start 01/18/17 at 08:30 Famotidine (Pepcid) 20 mg BID PO Last administered on 01/21/17 08:39; Admin Dose 20 MG; Start 01/19/17 at 21:00 ALISSA JAFFE NP January 21, 2017 10:47
[2017-01-21] MEDS ORDERED: DEXTROSE 5%-0.45% NACL 1,000 ML IV SCH (11:30)
--- NOTE | 2017-01-21 15:20 | RADRPT ---
PROCEDURE: US Abdomen. CLINICAL INDICATION: abdominal pain , obstructive jaundice TECHNIQUE: Multiple real-time images were acquired of the patient's right upper quadrant abdomen a nd retroperitoneum utilizing a high resolution transducer. COMPARISON: 01/14/2017, 01/13/2017 FINDINGS: The liver demonstrates normal echogenicity. The liver is enlarged in size and no focal solid lesion s are seen. The liver measures 19.5 cm in length. The portal vein is patent with normal direction of flow. Mild intrahepatic biliary dilatation is seen. No gallstones are identified within the gallbladder. There is mild pericholecystic fluid . There i s evidence of gallbladder wall thickening, measuring 5 mm. The common bile duct measures 7 mm in max imal dimension. The pancreas is not well seen due to overlying bowel gas. No free fluid is identified. The right kidney is normal in size, and demonstrate normal echogenicity and cortical thickness. The right kidney measures 13.3 cm in long dimension. There is no evidence of hydronephrosis. There are no kidney stones. There is a trace amount of right perinephric fluid. RPTAT: AA IMPRESSION: Thickening of the gallbladder wall with mild pericholecystic fluid. No evidence of gallstones. Mild hepatomegaly. Mildly dilated CBD measuring 7 mm. Mild intrahepatic biliary ductal dilatation. Trace right perinephric fluid. .Manav Zazueta MD, Date Time Electronically viewed and signed by .Manav Zazueta MD, on 01/21/2017 15:20 .S/
--- NOTE | 2017-01-21 17:50 | PN ---
Date/Time of Note Date/Time of Note DATE: 01/21/17 TIME: 17:47 Assessment/Plan VTE Prophylaxis VTE Prophylaxis Intervention: SCD's Lines/Catheters IV Catheter Type (from [facility]): Saline Lock Urinary Cath still in place: No Assessment/Plan Chief Complaint/Hosp Course . Problems: Assessment/Plan Jaundice * Extrahepatic * Lymphadenopathy * consider Lymphoma,non Hodgkin(?) * ERCP /ERS/Stent placement 01/14/2017 stent used is plastic Plan * continue present management * Monitor liver profile * awaiting biopsy results * awaiting ultrsound results Subjective 24 Hr Interval Summary Free Text/Dictation * Course reviewed with RN * improvement of pruritus * total bilirubin increased to 8.5 Exam/Review of Systems Vital Signs Vitals Vital Signs Date Time Temp Pulse Resp B/P Pulse Ox O2 Delivery O2 Flow Rate FiO2 01/21/17 07:26 99.3 86 14 103/57 95 01/19/17 10:10 Room Air 01/19/17 10:05 2.0 Intake and Output 01/20/17 01/20/17 01/21/17 15:00 23:00 07:00 Intake Total 840 ml 2000 ml Output Total 950 ml 3000 ml Balance -110 ml -1000 ml Exam Constitutional: alert, oriented Eyes: icteric Neck: non-tender, supple Respiratory: clear to auscultation, normal air movement Cardiovascular: nl pulses, regular rate and rhythm Gastrointestinal: bowel sounds, non-tender, soft Musculoskeletal: nl extremities to inspection, nl gait and stance Neurological: nl mental status, nl speech Skin: nl turgor Results Result Diagram: 01/21/17 0525 01/21/17 0525 Results 24 hrs Laboratory Tests Test 01/21/17 05:25 White Blood Count 10.0 Red Blood Count 3.35 L Hemoglobin 9.5 L Hematocrit 27.2 L Mean Corpuscular Volume 81.2 L Mean Corpuscular Hemoglobin 28.4 L Mean Corpuscular Hemoglobin Concent 34.9 Red Cell Distribution Width 14.3 Platelet Count 476 H Mean Platelet Volume 9.0 Neutrophils % 58.4 Lymphocytes % 14.1 L Monocytes % 5.0 Eosinophils % 19.9 H Basophils % 0.7 Nucleated Red Blood Cells % 0.2 H Neutrophils # 5.9 Lymphocytes # 1.4 Monocytes # 0.5 Eosinophils # 2.0 H Basophils # 0.1 Nucleated Red Blood Cells # 0.0 Sodium Level 133 L Potassium Level 4.2 Chloride Level 101 Carbon Dioxide Level 27 Anion Gap 9 Blood Urea Nitrogen 19 Creatinine 1.11 Glucose Level 94 Calcium Level 8.8 Phosphorus Level 5.4 H Magnesium Level 2.0 Total Bilirubin 8.5 H Direct Bilirubin 6.90 H Indirect Bilirubin 1.6 H Aspartate Amino Transf (AST/SGOT) 47 H Alanine Aminotransferase (ALT/SGPT) 68 Alkaline Phosphatase 512 H Total Protein 8.0 Albumin 3.1 L Globulin 4.90 H Albumin/Globulin Ratio 0.63 Medications Medications Current Medications Morphine Sulfate (morphine) 3 mg Q4H PRN IM PAIN; Start 01/13/17 at 22:00 Ondansetron HCl (Zofran Inj) 4 mg Q6H PRN IV NAUSEA AND/OR VOMITING; Start at 22:00 Hydroxyzine HCl (Atarax) 25 mg Q6H PRN NGT ITCHING Last administered on 12:38; Admin Dose 25 MG; Start 01/14/17 at 05:00 Zolpidem Tartrate (Ambien) 10 mg HS PRN PO INSOMNIA; Start 01/14/17 at 05:00 Acetaminophen (Tylenol Tab) 500 mg Q6H PRN PO PAIN AND OR ELEVATED TEMP Last administered on 01/19/17 22:56; Admin Dose 500 MG; Start 01/16/17 at 00:00 Diphenhydramine HCl (Benadryl) 50 mg Q6H PRN IV ITCHING Last administered on 23:07; Admin Dose 50 MG; Start 01/16/17 at 21:30 Loratadine (Claritin) 10 mg DAILY PRN PO ITCHING Last administered on 08:41; Admin Dose 10 MG; Start 01/18/17 at 08:30 Famotidine (Pepcid) 20 mg BID PO Last administered on 01/21/17 08:39; Admin Dose 20 MG; Start 01/19/17 at 21:00 NARESH COON MD January 21, 2017 17:50
[2017-01-21 20:20] VITALS: BP 96/57; RESP 18
[2017-01-22] MEDS: DIPHENHYDRAMINE 50 MG INJ IV PRN (00:19)
[2017-01-22 05:38] LABS: ADD SCAN DIFF NO
[2017-01-22 05:50] LABS: BASOPHIL # 0.1 10^3/ul (0.0-0.1); EOSINOPHILS # 1.8 10^3/ul (0.0-0.5); EOSINOPHILS % 18.2 % (0.0-7.0); HEMATOCRIT 27.8 % (42.0-52.0); HEMOGLOBIN 9.7 g/dl (14.0-18.0); LYMPHOCYTES # 1.4 10^3/ul (0.8-2.9); MEAN CORPUSCULAR HEMOGLOBIN 28.5 pg (29.0-33.0); MEAN CORPUSCULAR HGB CONC 34.9 g/dl (32.0-37.0); MEAN CORPUSCULAR VOLUME 81.8 fl (82.0-101.0); MEAN PLATELET VOLUME 8.8 fl (7.4-10.4); MONOCYTE # 0.5 10^3/ul (0.3-0.9); MONOCYTES % 5.4 % (0.0-11.0); NEUTROPHIL # 5.9 10^3/ul (1.6-7.5); NEUTROPHILS % 59.4 % (39.0-77.0); NUCLEATED RED BLOOD CELLS% 0.2 /100WBC (0.0-0.0); PLATELET COUNT 518 10^3/UL (140-415); RED CELL DISTRIBUTION WIDTH 14.1 % (11.5-14.5)
[2017-01-22 06:02] LABS: POTASSIUM 4.2 mmol/L (3.5-5.1)
[2017-01-22 06:04] LABS: ALBUMIN/GLOBULIN RATIO 0.56; BILIRUBIN,DIRECT 6.5 mg/dl (0.00-0.20); BILIRUBIN,INDIRECT 1.7 mg/dl (0-1.1); BILIRUBIN,TOTAL 8.2 mg/dl (0.2-1.3); CALCIUM 8.9 mg/dl (8.4-10.2); CREATININE 1.18 mg/dl (0.61-1.24); TOTAL PROTEIN 8.3 g/dl (6.1-8.1)
[2017-01-22 06:29] LABS: LYMPHOCYTES % 13.6 % (15.0-51.0)
[2017-01-22] MEDS: hydrOXYzine HCL 25 MG TAB NGT PRN (06:38)
[2017-01-22 08:04] VITALS: BP 105/62; RESP 20
[2017-01-22] MEDS: FAMOTIDINE 20 MG TAB PO SCH (08:07)
[2017-01-22 09:43] LABS: PHOSPHORUS 5.5 mg/dl (2.5-4.9)
--- NOTE | 2017-01-22 09:46 | PN ---
Date/Time of Note Date/Time of Note DATE: 01/22/17 TIME: 09:43 Assessment/Plan VTE Prophylaxis VTE Prophylaxis Intervention: SCD's Lines/Catheters IV Catheter Type (from [facility]): [facility] Urinary Cath still in place: No Assessment/Plan Chief Complaint/Hosp Course 1. Painless jaundice. Etiology could be multifactorial. The patient's abdominal imaging showed numerous hypovascular lesions in bilateral kidneys, radiographically consistent with renal lymphoma along with mild intrahepatic bile duct dilatation. The patient underwent an ERCP on 01/08/2017 that showed a small narrowing of the distal common bile duct, suggesting extrinsic compression. The patient is status post sphincterotomy and placement of a stent. The patient being followed by gastroenterology. 2. Possible underlying malignant process with underlying lymphadenopathy, infiltration of the pancreas and kidneys. The patient is status post renal biopsy on 01/19/2017. The patient is being followed by oncology. 3. Transaminitis and hyperbilirubinemia, most probably secondary to underlying biliary tree obstruction. Continue to monitor the patient. Avoid hepatotoxic medications. 4. Microcytic hypochromic anemia. The patient's iron panel showing low iron saturation. We will monitor the H and H closely. We will transfuse blood products as needed. 5. Dyslipidemia. We will reinforce a low-cholesterol diet. 6. Prediabetes. We will reinforce a low carbohydrate diet. Dietary consult obtained. 7. Fluid, electrolytes, nutrition. Low-cholesterol diet as tolerated. 8. Deep venous thrombosis prophylaxis. Bilateral sequential compression devices. 9. Gastrointestinal prophylaxis. Histamine-2 receptor blockers. PLAN: The patient has worsening bilirubinemia. Await further recommendations from consultants. Ultrasound of the abdomen from 01/21/2017 showing thickening of the gallbladder wall with mild pericholecystic fluid with no evidence of gallstones, mild hepatomegaly and mildly dilated CBD measuring 7 mm with mild intrahepatic biliary ductal dilatation. We will start the patient on empiric antibiotics provided the patient's multiple episodes of low-grade fevers. The case was discussed with Dr. Reid. Problems: Subjective 24 Hr Interval Summary Free Text/Dictation The patient continues to have low-grade fevers. Exam/Review of Systems Vital Signs Vitals Vital Signs Date Time Temp Pulse Resp B/P Pulse Ox O2 Delivery O2 Flow Rate FiO2 01/22/17 08:04 99.1 87 20 105/62 97 01/19/17 10:10 Room Air 01/19/17 10:05 2.0 Intake and Output 01/21/17 01/21/17 01/22/17 15:00 23:00 07:00 Intake Total 300 ml 500 ml Output Total 1100 ml 1000 ml Balance -800 ml -500 ml Exam GENERAL: This is a well-built, well-nourished male patient lying in bed in no apparent distress. HEENT: Head normocephalic and atraumatic. Eyes icteric sclerae. Conjunctivae clear. ENT: Nasal septum is midline. Oral mucosa is moist. NECK: Supple. No JVD noticed. RESPIRATORY: Bilaterally clear to auscultation. No adventitious breath sounds. No use of accessory muscles of respiration. CARDIAC: Regular rate and rhythm. No murmurs heard. ABDOMEN: Soft, nontender and nondistended. Bowel sounds positive in all 4 quadrants. GENITOURINARY: Deferred. EXTREMITIES: No cyanosis, no clubbing, no edema. Peripheral pulses palpable. NEUROLOGIC: The patient is awake, alert, and oriented. Cranial nerves are grossly intact. Results Result Diagram: 01/22/17 0510 01/22/17 0510 Results 24 hrs Laboratory Tests Test 01/22/17 05:10 White Blood Count 10.0 Red Blood Count 3.40 L Hemoglobin 9.7 L Hematocrit 27.8 L Mean Corpuscular Volume 81.8 L Mean Corpuscular Hemoglobin 28.5 L Mean Corpuscular Hemoglobin Concent 34.9 Red Cell Distribution Width 14.1 Platelet Count 518 H Mean Platelet Volume 8.8 Neutrophils % 59.4 Lymphocytes % 13.6 L Monocytes % 5.4 Eosinophils % 18.2 H Basophils % 1.0 Nucleated Red Blood Cells % 0.2 H Neutrophils # 5.9 Lymphocytes # 1.4 Monocytes # 0.5 Eosinophils # 1.8 H Basophils # 0.1 Nucleated Red Blood Cells # 0.0 Sodium Level 138 Potassium Level 4.2 Chloride Level 100 Carbon Dioxide Level 28 Anion Gap 14 Blood Urea Nitrogen 21 H Creatinine 1.18 Glucose Level 94 Calcium Level 8.9 Total Bilirubin 8.2 H Direct Bilirubin 6.50 H Indirect Bilirubin 1.7 H Aspartate Amino Transf (AST/SGOT) 53 H Alanine Aminotransferase (ALT/SGPT) 67 Alkaline Phosphatase 461 H Total Protein 8.3 H Albumin 3.0 L Globulin 5.30 H Albumin/Globulin Ratio 0.56 Medications Medications Current Medications Morphine Sulfate (morphine) 3 mg Q4H PRN IM PAIN; Start 01/13/17 at 22:00 Ondansetron HCl (Zofran Inj) 4 mg Q6H PRN IV NAUSEA AND/OR VOMITING; Start at 22:00 Hydroxyzine HCl (Atarax) 25 mg Q6H PRN NGT ITCHING Last administered on 06:38; Admin Dose 25 MG; Start 01/14/17 at 05:00 Zolpidem Tartrate (Ambien) 10 mg HS PRN PO INSOMNIA; Start 01/14/17 at 05:00 Acetaminophen (Tylenol Tab) 500 mg Q6H PRN PO PAIN AND OR ELEVATED TEMP Last administered on 01/19/17 22:56; Admin Dose 500 MG; Start 01/16/17 at 00:00 Diphenhydramine HCl (Benadryl) 50 mg Q6H PRN IV ITCHING Last administered on 00:19; Admin Dose 50 MG; Start 01/16/17 at 21:30 Loratadine (Claritin) 10 mg DAILY PRN PO ITCHING Last administered on 08:41; Admin Dose 10 MG; Start 01/18/17 at 08:30 Famotidine (Pepcid) 20 mg BID PO Last administered on 01/22/17 08:07; Admin Dose 20 MG; Start 01/19/17 at 21:00 ALISSA JAFFE NP January 22, 2017 09:46
[2017-01-22] MEDS ORDERED: PIPER-TAZO 3.375 GM IV (PMX) 100 ML IVPB SCH (14:00)
--- NOTE | 2017-01-22 15:52 | DS ---
DATE OF ADMISSION: 01/13/2017 DATE OF DISCHARGE: 01/22/2017 (ELOPED) DIAGNOSES: 1. Painless jaundice. 2. Possible underlying malignant process with underlying lymphadenopathy, infiltration of the pancreas, and kidneys. 3. Transaminitis with hyperbilirubinemia. 4. Microcytic, hypochromic anemia. 5. Dyslipidemia. 6. Pre-diabetes (A1C 6.2). CONSULTANTS: 1. Dr. García James, Gastroenterology. 2. Dr. Seb Dowell, Hematology/Oncology. 3. Dr. Devaughn Cao, Hematology/Oncology. HOSPITAL COURSE: This is a 36-year-old male with no significant past medical history who presented to the emergency department with a chief complaint of jaundice. The patient also verbalized lymphadenopathy under his mandible for which he went to a local urgent care and he was started on treatment with an antibiotic as well as anti-inflammatory. The patient also went to see his primary care physician on the previous day of admission to the hospital, when he was noticed to have significant hyperbilirubinemia. Hence, the patient was encouraged to go to the nearest emergency room. In the emergency room, the patient was noticed to have a bilirubin of around 5. The patient's right upper quadrant ultrasound showed evidence of lymphadenopathy in the region of the pancreatic head and epigastric region with intrahepatic biliary ductal dilatation, as well as moderate pericholecystic fluid and mild gallbladder wall thickening with no evidence of gallstones. Provided the patient's history of present illness and the diagnostic findings, a clinical decision was made to admit the patient to inpatient setting to have him further evaluated. The patient was admitted to inpatient setting. A gastroenterology consult and hematology/oncology consult were obtained on this patient. The patient underwent a gallbladder ultrasound that showed evidence of lymphadenopathy in the region of the pancreatic head and epigastric region with mild intrahepatic biliary ductal dilatation, with moderate pericholecystic fluid and gallbladder wall thickening with no evidence of gallstones, and a trace amount of right perinephric fluid. The patient was seen and evaluated by gastroenterology. The patient underwent an ERCP that showed small narrowing of the distal common bile duct suggesting extrinsic compression with paucity of intrahepatic, that raising question for liver infiltrative process. The patient had a sphincterotomy and placement of a stent. The patient's hyperbilirubinemia and transaminitis improved after the stent placement. However, it started trending up again with consistently elevated hyperbilirubinemia along with transaminitis. The patient was evaluated for any underlying malignancy. The initial plan was to obtain a biopsy from the subcutaneous thigh lymph nodes. However, this was unsuccessful. Hence, the patient underwent a biopsy of a kidneys lesion. The patient's CT scan of the abdomen and pelvis showed numerous hypovascular lesions in bilateral kidneys. As mentioned earlier, the patient has underlying hyperbilirubinemia and transaminitis, most probably secondary to biliary tract obstruction. Hepatotoxic drugs were avoided on this patient. The patient was noticed to have microcytic hypochromic anemia. The patient's iron panel showed low iron saturation. The patient did not require any blood transfusion during the hospital course. The patient was also noticed to have dyslipidemia incidentally with uncontrolled cholesterol levels including triglycerides. The patient was not a good candidate for statin therapy because of his underlying transaminitis and hyperbilirubinemia. The patient was also noticed to have prediabetes with a hemoglobin A1c of 6.2. However, the patient's random blood glucose samples remained stable and did not require to be started on any insulin sliding scale. The patient was waiting for further evaluation and was waiting for final pathology results from the biopsy of the kidneys. Meanwhile, on 01/22/2017, the patient was not seen in his room by the primary nurse. After further evaluation, the patient was found to have left with all of his belongings. No discharge planning was done on this patient since the patient eloped from the hospital. PERTINENT LABORATORY AND DIAGNOSTIC DATA: 1. Gallbladder ultrasound. Evidence of lymphadenopathy in the region of the pancreatic head and epigastric region. Mild intrahepatic biliary ductal dilatation. Moderate pericholecystic fluid and mild gallbladder wall thickening. No evidence of gallstones. Trace amount of perinephric fluid. Neoplasm such as lymphoma is suspected. 2. Abdominal MRI. Diffuse mild intrahepatic bile duct dilatation. Subtle infiltration of the pancreatic body concerning for lymphomatous involvement of the pancreas. This is associated with peripancreatic, retroperitoneal and gastrohepatic lymphadenopathy. Numerous hypovascular lesions occupying the bilateral kidneys, radiographically consistent for renal lymphoma. There is also marrow thickening and hyperenhancement of the extrahepatic biliary system which is a nonspecific finding. 3. CT-guided needle biopsy of left kidney on 01/19/2017. 4. Latest CBC: WBC 10.0, hemoglobin 9.7, hematocrit 27.8, platelet count 519. 5. Latest CMP: Sodium 130, potassium 4.0, chloride 100, carbon dioxide 28, anion gap 14, BUN 21, creatinine 1.1, glucose 94, calcium 8.9, phosphorus 5.5, magnesium 2.0. 6. Hemoglobin A1c 6.2. 7. Fasting lipid panel: Triglycerides 510, total cholesterol 260, LDL 133, HDL 25. At this time, I would like to thank all the consultants for seeing the patient and providing clinical recommendations. The case and management of this patient was fully discussed with Dr. Gilbert. ALISSA GILBERT MD, AM/ERIC Conf#: [id number] DID#: [id number]
== END 2017-01-22 12:05 | disposition left against medical advice (07) | DRG 446 ==
LOC: E/R 16:53 → MS2 20:28
PROVIDERS: ADMIT Internal Medicine; ATTEND Internal Medicine
PROC: 0F798DZ Dilation of Common Bile Duct with Intraluminal Device, Via Natural or Artificial Opening Endoscopic (ICD-10-PCS; principal; 2017-01-15)
PROC: BF111ZZ Fluoroscopy of Biliary and Pancreatic Ducts using Low Osmolar Contrast (ICD-10-PCS; 2017-01-15)
PROC: 0TB13ZX Excision of Left Kidney, Percutaneous Approach, Diagnostic (ICD-10-PCS; 2017-01-19)
DX: K83.1 Obstruction of bile duct (principal); K86.89 Other specified diseases of pancreas; N28.89 Other specified disorders of kidney and ureter; D72.829 Elevated white blood cell count, unspecified; D50.9 Iron deficiency anemia, unspecified; E80.6 Other disorders of bilirubin metabolism; E78.5 Hyperlipidemia, unspecified; L29.9 Pruritus, unspecified; R59.0 Localized enlarged lymph nodes; R74.0 Nonspecific elevation of levels of transaminase and lactic acid dehydrogenase [LDH]; R73.03 Prediabetes
CPT/HCPCS: 36415; 71010; 71250; 74182; 74330; 76705; 77012; 80048; 80053; 80061; 80076; 81001; 81003; 82378; 82728; 82784; 83036; 83540; 83615; 83690; 83735; 84100; 84155; 84165; 84439; 84443; 84560; 85025; 85610; 85651; 85730; 86301; 86320; 86703; 86704; 86709; 86803; 87040; 87086; 87340; 88300; 88305; 88313; 88331; C2617; J0330; J0690; J1200; J2250; J2370; J3010; J7030; J7040; J7042; Q9967